=== PATIENT | female | born 1970 | race African-American/Black ===

== ENCOUNTER 2018-10-27 14:56 | Inpatient (IN) | payer MEDICAID ==
[2018-10-27] MEDS ORDERED: NORMAL SALINE 1000 ML 1,000 ML IV ONE ×2 (15:35→18:14)
--- NOTE | 2018-10-27 15:38 | ER Document Report ---
ED General - General Stated Complaint: POSSIBLE HIGH BLOOD SUGAR Time Seen by Provider: 10/27/18 15:21 Mode of Arrival: Stretcher Information source: Patient, Emergency Med Personnel, [facility] Records Notes: 48-year-old female with type 1 diabetes, hypertension, hypothyroidism, alcoholism, liver disease presents via EMS from home with complaint of weakness. EMS reported that the patient's home health nurse called EMS. Upon their arrival patient was hypotensive with a blood pressure of 89/60. Patient does report a recent admission for DKA on September 29, 2018. She states she has been compliant with her medications. She does state that she feels weak and has experienced multiple weeks of nonbloody diarrhea. Patient denies headache, fever, chills, nausea, vomiting, chest pain, shortness of breath. - HPI Onset: Just prior to arrival Quality of pain: No pain Severity: None Pain Level: Denies Associated symptoms: Diarrhea, Weakness. denies: Chest pain, Fever, Nausea, Vomiting, Shortness of breath Exacerbated by: Denies Relieved by: Denies Similar symptoms previously: Yes Recently seen / treated by doctor: Yes - Related Data Allergies/Adverse Reactions: No Known Allergies Allergy (Unverified 10/27/18 18:55) Past Medical History - General Information source: Patient, Emergency Med Personnel, [facility] Records - Social History Smoking Status: Former Smoker Frequency of alcohol use: Occasional Drug Abuse: None Lives with: Family Family History: Reviewed & Not Pertinent Patient has suicidal ideation: No Patient has homicidal ideation: No - Past Medical History Cardiac Medical History: Reports: Hx Hypertension Endocrine Medical History: Reports: Hx Diabetes Mellitus Type 1, Hx Hypothyroidism Review of Systems - Review of Systems Notes: REVIEW OF SYSTEMS: CONSTITUTIONAL : Denies fever, chills, or sweats. Denies recent illness. Denies weight loss, recent hospitalizations. EENT: Denies visual changes, eye pain. Denies sore throat, oral lesions, difficulty swallowing. CARDIOVASCULAR: Denies chest pain. Denies palpitations. Denies lower extremity edema. RESPIRATORY: Denies cough. Denies shortness of breath, wheezing. GASTROINTESTINAL: Denies abdominal pain or distention. Denies nausea, vomiting. Denies blood in vomitus, stools, or per rectum. Denies black, tarry stools. Denies constipation. GENITOURINARY: Denies difficulty urinating, painful urination, frequency, blood in urine, or vaginal discharge. MUSCULOSKELETAL: Denies back or neck pain or stiffness. Denies joint pain or swelling. SKIN: Denies rash, lesions or sores. HEMATOLOGIC : Denies easy bruising or bleeding. LYMPHATIC: Denies swollen glands. NEUROLOGICAL: Denies confusion or altered mental status. Denies loss of consciousness. Denies dizziness or lightheadedness. Denies headache. Denies paralysis. Denies problems difficulty with ambulation, slurred speech. Denies sensory loss, numbness, or tingling. Denies seizures. PSYCHIATRIC: Denies anxiety or stress. Denies depression, suicidal ideation, or homicidal ideation. Denies visual or auditory hallucinations. Physical Exam - Vital signs Vitals: Temp Pulse Resp BP Pulse Ox 94.3 F L 71 18 98/72 L 100 10/27/18 14:57 10/27/18 14:57 10/27/18 14:57 10/27/18 14:57 10/27/18 14:57 - Notes Notes: PHYSICAL EXAMINATION: GENERAL: Well-appearing, well-nourished and in no acute distress. HEAD: Atraumatic, normocephalic. EYES: Pupils equal round and reactive to light, extraocular movements intact, conjunctiva are normal. ENT: Nares patent, oropharynx clear without exudates. Dry mucous membranes. NECK: Normal range of motion, supple without lymphadenopathy LUNGS: Breath sounds clear to auscultation bilaterally and equal. No wheezes ra les or rhonchi. HEART: Regular rate and rhythm without murmurs ABDOMEN: Soft, nontender, nondistended abdomen. No guarding, no rebound. No masses appreciated. Female : deferred Musculoskeletal: Normal range of motion, no pitting or edema. No cyanosis. NEUROLOGICAL: Cranial nerves grossly intact. Normal speech, normal gait. Normal sensory, motor exams PSYCH: Normal mood, normal affect. SKIN: Warm, Dry, normal turgor, no rashes or lesions noted. Course - Re-evaluation Re-evalutation: 10/27/18 22:01 Laboratory 10/27/18 10/27/18 10/27/18 17:17 17:40 17:40 WBC 8.3 RBC 2.42 L Hgb 7.6 L Hct 25.3 L MCV 105 H MCH 31.6 MCHC 30.2 L RDW 18.5 H Plt Count 88 L Total Counted 100 Seg Neutrophils % Not Reportable Seg Neuts % (Manual) 86 H Lymphocytes % Not Reportable Lymphocytes % (Manual) 13 Monocytes % Not Reportable Monocytes % (Manual) 1 L Eosinophils % Not Reportable Eosinophils % (Manual) 0 Basophils % Not Reportable Basophils % (Manual) 0 Absolute Neutrophils Not Reportable Abs Neuts (Manual) 7.1 Absolute Lymphocytes Not Reportable Abs Lymphs (Manual) 1.1 Absolute Monocytes Not Reportable Abs Monocytes (Manual) 0.1 Absolute Eosinophils Not Reportable Absolute Eos (Manual) 0.0 Absolute Basophils Not Reportable Abs Basophils (Manual) 0.0 Large Platelets PRESENT Platelet Comment DECREASED Poikilocytosis SLIGHT Macrocytosis 2+ Target Cells SLIGHT Ovalocytes SLIGHT PT INR VBG pH VBG pCO2 VBG HCO3 VBG Base Excess Sodium 135.6 L Potassium 4.5 Chloride 115 H Carbon Dioxide 7 L* Anion Gap 14 BUN 43 H Creatinine 4.29 H Est GFR ( Amer) 13 L Est GFR (Non-Af Amer) 11 L Glucose 643 H* Lactic Acid Calcium 8.8 Total Bilirubin 0.4 Direct Bilirubin 0.4 Neonat Total Bilirubin Not Reportable Neonat Direct Bilirubin Not Reportable Neonat Indirect Bili Not Reportable AST 11 L ALT 13 Alkaline Phosphatase 141 H Total Protein 6.6 Albumin 2.9 L TSH Urine Color YELLOW Urine Appearance TURBID Urine pH 5.0 Ur Specific [place] 1.009 Urine Protein 100 H Urine Glucose (UA) NEGATIVE Urine Ketones NEGATIVE Urine Blood LARGE H Urine Nitrite NEGATIVE Urine Bilirubin NEGATIVE Urine Urobilinogen NEGATIVE Ur Leukocyte Esterase LARGE H Urine WBC (Auto) >182 Urine RBC (Auto) 131 Urine Bacteria (Auto) 3+ Urine WBC Clumps MANY Squamous Epi Cells Auto 5 Amorphous Sediment Auto TRACE Urine Yeast (Budding) PRESENT Urine Ascorbic Acid NEGATIVE Serum Alcohol < 10 Blood Type Confirm Crossmatch 10/27/18 10/27/18 10/27/18 17:40 17:40 17:40 WBC RBC Hgb Hct MCV MCH MCHC RDW Plt Count Total Counted Seg Neutrophils % Seg Neuts % (Manual) Lymphocytes % Lymphocytes % (Manual) Monocytes % Monocytes % (Manual) Eosinophils % Eosinophils % (Manual) Basophils % Basophils % (Manual) Absolute Neutrophils Abs Neuts (Manual) Absolute Lymphocytes Abs Lymphs (Manual) Absolute Monocytes Abs Monocytes (Manual) Absolute Eosinophils Absolute Eos (Manual) Absolute Basophils Abs Basophils (Manual) Large Platelets Platelet Comment Poikilocytosis Macrocytosis Target Cells Ovalocytes PT INR VBG pH 7.07 L* VBG pCO2 30.6 L VBG HCO3 8.7 L VBG Base Excess -20.2 Sodium Potassium Chloride Carbon Dioxide Anion Gap BUN Creatinine Est GFR ( Amer) Est GFR (Non-Af Amer) Glucose Lactic Acid 1.0 Calcium Total Bilirubin Direct Bilirubin Neonat Total Bilirubin Neonat Direct Bilirubin Neonat Indirect Bili AST ALT Alkaline Phosphatase Total Protein Albumin TSH 3.17 Urine Color Urine Appearance Urine pH Ur Specific [place] Urine Protein Urine Glucose (UA) Urine Ketones Urine Blood Urine Nitrite Urine Bilirubin Urine Urobilinogen Ur Leukocyte Esterase Urine WBC (Auto) Urine RBC (Auto) Urine Bacteria (Auto) Urine WBC Clumps Squamous Epi Cells Auto Amorphous Sediment Auto Urine Yeast (Budding) Urine Ascorbic Acid Serum Alcohol Blood Type Confirm Crossmatch 10/27/18 10/27/18 10/27/18 19:45 19:45 19:50 WBC RBC Hgb Hct MCV MCH MCHC RDW Plt Count Total Counted Seg Neutrophils % Seg Neuts % (Manual) Lymphocytes % Lymphocytes % (Manual) Monocytes % Monocytes % (Manual) Eosinophils % Eosinophils % (Manual) Basophils % Basophils % (Manual) Absolute Neutrophils Abs Neuts (Manual) Absolute Lymphocytes Abs Lymphs (Manual) Absolute Monocytes Abs Monocytes (Manual) Absolute Eosinophils Absolute Eos (Manual) Absolute Basophils Abs Basophils (Manual) Large Platelets Platelet Comment Poikilocytosis Macrocytosis Target Cells Ovalocytes PT 14.7 INR 1.09 VBG pH VBG pCO2 VBG HCO3 VBG Base Excess Sodium Potassium Chloride Carbon Dioxide Anion Gap BUN Creatinine Est GFR ( Amer) Est GFR (Non-Af Amer) Glucose Lactic Acid Calcium Total Bilirubin Direct Bilirubin Neonat Total Bilirubin Neonat Direct Bilirubin Neonat Indirect Bili AST ALT Alkaline Phosphatase Total Protein Albumin TSH Urine Color Urine Appearance Urine pH Ur Specific [place] Urine Protein Urine Glucose (UA) Urine Ketones Urine Blood Urine Nitrite Urine Bilirubin Urine Urobilinogen Ur Leukocyte Esterase Urine WBC (Auto) Urine RBC (Auto) Urine Bacteria (Auto) Urine WBC Clumps Squamous Epi Cells Auto Amorphous Sediment Auto Urine Yeast (Budding) Urine Ascorbic Acid Serum Alcohol Blood Type Confirm B POSITIVE Crossmatch See Detail Chest X-Ray 10/27/18 15:34 IMPRESSION: 1. No acute pulmonary consolidation. 2. Cardiomegaly. No evidence for failure. Temp Pulse Resp BP Pulse Ox 95.5 F L 71 12 96/73 L 100 10/27/18 21:30 10/27/18 14:57 10/27/18 21:30 10/27/18 21:30 10/27/18 21:30 48-year-old female presents via EMS from home with complaint of weakness. Per EMS patient was found hypotensive by her home health nurse. Vital signs revie wed upon arrival and patient is hypothermic, hypotensive. Fluid resuscitation initiated and patient received 3 L of IV fluids. CBC shows an anemia with a hemoglobin of 7.6. Blood transfusion ordered for this. CMP shows hyperglycemia, metabolic acidosis without evidence of DKA. Patient's ABG shows her to have a pH of 7.07. Bear hugger was placed on the patient and warm fluids were infused. Previous medical records were reviewed which showed the patient was admitted recently for similar symptoms. Patient's MRN number today does not match her previous records and charts are not merged. Spoke to Dr. Lucero who is agreed to admit the patient to the [facility]. - Vital Signs Vital signs: Temp Pulse Resp BP Pulse Ox 95.5 F L 71 12 96/73 L 100 10/27/18 21:30 10/27/18 14:57 10/27/18 21:30 10/27/18 21:30 10/27/18 21:30 - Laboratory Result Diagrams: 10/27/18 17:40 10/27/18 17:40 Laboratory results interpreted by me: 10/27/18 10/27/18 10/27/18 17:17 17:40 17:40 RBC 2.42 L Hgb 7.6 L Hct 25.3 L MCV 105 H MCHC 30.2 L RDW 18.5 H Plt Count 88 L Seg Neuts % (Manual) 86 H Monocytes % (Manual) 1 L VBG pH VBG pCO2 VBG HCO3 Sodium 135.6 L Chloride 115 H Carbon Dioxide 7 L* BUN 43 H Creatinine 4.29 H Est GFR ( Amer) 13 L Est GFR (Non-Af Amer) 11 L Glucose 643 H* AST 11 L Alkaline Phosphatase 141 H Albumin 2.9 L Urine Protein 100 H Urine Blood LARGE H Ur Leukocyte Esterase LARGE H Crossmatch 10/27/18 10/27/18 17:40 19:45 RBC Hgb Hct MCV MCHC RDW Plt Count Seg Neuts % (Manual) Monocytes % (Manual) VBG pH 7.07 L* VBG pCO2 30.6 L VBG HCO3 8.7 L Sodium Chloride Carbon Dioxide BUN Creatinine Est GFR ( Amer) Est GFR (Non-Af Amer) Glucose AST Alkaline Phosphatase Albumin Urine Protein Urine Blood Ur Leukocyte Esterase Crossmatch See Detail - Diagnostic Test Radiology reviewed: Image reviewed, Reports reviewed - EKG Interpretation by Me EKG shows normal: Sinus rhythm Rate: Normal Rhythm: NSR When compared to previous EKG there are: No significant change Critical Care Note - Critical Care Note Total time excluding time spent on procedures (mins): 45 - Minutes of critical care time spent in direct contact evaluating and reevaluating the patient, treating symptoms, reviewing labs and studies and speaking with family and consultants excluding any procedures Discharge - Discharge Clinical Impression: Metabolic acidosis, Hypoalbuminemia, Hyperglycemia due to type 1 diabetes mellitus, Acute kidney injury Hypothermia Qualifiers: Encounter type: initial encounter Qualified Code(s): T68.XXXA - Hypothermia, initial encounter Urinary tract infection Qualifiers: Urinary tract infection type: site unspecified Hematuria presence: with he maturia Qualified Code(s): N39.0 - Urinary tract infection, site not specified Hypotension Qualifiers: Hypotension type: unspecified hypotension type Qualified Code(s): I95.9 - Hypotension, unspecified Condition: Fair Disposition: ADMITTED INPATIENT Admitting Provider: [facility] Admitted: [facility]
--- NOTE | 2018-10-27 17:16 | RADIOLOGY REPORT (SQ) ---
EXAM DESCRIPTION: CHEST SINGLE VIEW COMPLETED DATE/TIME: 10/27/2018 5:06 pm REASON FOR STUDY: weakness COMPARISON: None. EXAM PARAMETERS: NUMBER OF VIEWS: One view. TECHNIQUE: Single frontal radiographic view of the chest acquired. RADIATION DOSE: NA LIMITATIONS: None. FINDINGS: LUNGS AND PLEURA: No opacities, masses or pneumothorax. No pleural effusion. MEDIASTINUM AND HILAR STRUCTURES: No masses. Contour normal. HEART AND VASCULAR STRUCTURES: Cardiomegaly. No evidence for failure. BONES: No acute findings. HARDWARE: None in the chest. OTHER: No other significant finding. IMPRESSION: 1. No acute pulmonary consolidation. 2. Cardiomegaly. No evidence for failure. TECHNICAL DOCUMENTATION: JOB ID: [id number] [employer]- All Rights Reserved Reading location - IP/workstation name: [email or web address]
[2018-10-27 18:03] LABS: VENOUS BLOOD BASE EXCESS -20.2 mmol/L; VENOUS BLOOD HCO3 8.7 mmol/L (20-32); VENOUS BLOOD PCO2 30.6 mmHg (35-63)
[2018-10-27 18:09] LABS: VENOUS BLOOD PH 7.07 (7.30-7.42)
[2018-10-27 18:18] LABS: HEMATOCRIT 25.3 % (36.0-47.0); MEAN CORPUSCULAR HEMOGLOBIN 31.6 pg (27.0-33.4); MEAN CORPUSCULAR HGB CONC 30.2 g/dL (32.0-36.0); MEAN CORPUSCULAR VOLUME 105 fl (80-97); RED BLOOD COUNT 2.42 10^6/uL (3.72-5.28); RED CELL DISTRIBUTION WIDTH 18.5 % (11.5-14.0); WHITE BLOOD COUNT 8.3 10^3/uL (4.0-10.5)
[2018-10-27 18:25] LABS: PLATELET COUNT 88 10^3/uL (150-450)
[2018-10-27 18:32] LABS: ABSOLUTE LYMPHOCYTES# (MANUAL) 1.1 10^3/uL (0.5-4.7); ABSOLUTE MONOCYTES # (MANUAL) 0.1 10^3/uL (0.1-1.4); ABSOLUTE NEUTROPHILS# (MANUAL) 7.1 10^3/uL (1.7-8.2); BASOPHILS % (MANUAL) 0 % (0-2); EOSINOPHILS % (MANUAL) 0 % (0-6); LYMPHOCYTES % (MANUAL) 13 % (13-45); MONOCYTES % (MANUAL) 1 % (3-13); SEGMENTED NEUTROPHILS % (MAN) 86 % (42-78); TOTAL CELLS COUNTED 100
[2018-10-27 18:32] LABS: AMORPHOUS SEDIMENT,URINE TRACE /HPF; APPEARANCE,URINE TURBID; BILIRUBIN,URINE NEGATIVE (NEGATIVE); COLOR,URINE YELLOW; GLUCOSE, URINE NEGATIVE (NEGATIVE); KETONES,URINE NEGATIVE (NEGATIVE); LEUKOCYTE ESTERASE,URINE LARGE (NEGATIVE); NITRITE,URINE NEGATIVE (NEGATIVE); PROTEIN,URINE 100 mg/dL (NEGATIVE); URINE SPECIFIC GRAVITY 1.009; UROBILINOGEN,URINE NEGATIVE mg/dL (<2.0)
[2018-10-27 18:33] LABS: PLATELET COMMENT DECREASED; PLATELET LARGE PRESENT
[2018-10-27 18:34] LABS: OVALOCYTES SLIGHT; POIKILOCYTOSIS SLIGHT; TARGET CELLS SLIGHT
[2018-10-27 18:37] LABS: HEMOGLOBIN 7.6 g/dL (12.0-15.5)
[2018-10-27 18:42] LABS: ALANINE AMINOTRANSFERASE 13 U/L (9-52); ALBUMIN 2.9 g/dL (3.5-5.0); ALKALINE PHOSPHATASE 141 U/L (38-126); ANION GAP 14 (5-19); ASPARTATE AMINO TRANSFERASE 11 U/L (14-36); BILIRUBIN,DIRECT 0.4 mg/dL (0.0-0.4); BILIRUBIN,TOTAL 0.4 mg/dL (0.2-1.3); BLOOD UREA NITROGEN 43 mg/dL (7-20); CALCIUM 8.8 mg/dL (8.4-10.2); CHLORIDE 115 mmol/L (98-107); POTASSIUM 4.5 mmol/L (3.6-5.0); SODIUM 135.6 mmol/L (137-145); TOTAL PROTEIN 6.6 g/dL (6.3-8.2)
[2018-10-27 18:50] LABS: ALCOHOL < 10 mg/dL (NONE DETECTED)
[2018-10-27] MEDS ORDERED: CEFTRIAXONE 1 GM/D5W RTU 1 GM/50 ML RTUPB IV ONE ×2 (18:54→23:55)
[2018-10-27] MEDS ORDERED: SODIUM BICARBONATE 8.4% INJ 50 MEQ/50 ML DISP.SYRIN IV ONE (18:56)
[2018-10-27 18:58] LABS: CARBON DIOXIDE 7 mmol/L (22-30); GLUCOSE 643 mg/dL (75-110)
[2018-10-27] MEDS ORDERED: NORMAL SALINE 250 ML IV PRN ×2 (19:12)
[2018-10-27] MEDS ORDERED: THIAMINE HCL 100 MG TABLET PO ONE (19:14)
[2018-10-27] MEDS ORDERED: FOLIC ACID 1 MG TABLET PO ONE (19:14)
--- NOTE | 2018-10-27 19:23 | EKG REPORT ---
SEVERITY:- ABNORMAL ECG - SINUS RHYTHM PROBABLE ANTEROSEPTAL INFARCT, AGE INDETERM : Confirmed by: Sis Bynum 27-Oct-2018 19:23:32
[2018-10-27] MEDS ORDERED: GLUCAGON,HUMAN RECOMB 1 MG INJ IM PRN ×2 (19:46→20:59)
[2018-10-27] MEDS ORDERED: DEXTROSE 50%-WATER 25 GM/50 ML DISP.SYRIN IV PRN ×4 (19:46→20:59)
[2018-10-27] MEDS ORDERED: NORMAL SALINE 100 ML with INSULIN REGULAR, HUMAN 100 UNIT IV PRN ×4 (19:46→20:59)
[2018-10-27] MEDS ORDERED: DEXTROSE 40% GEL 15 GM TUBE PO PRN ×4 (19:46→20:59)
[2018-10-27 20:13] LABS: INTERNATIONAL RATION (INR) 1.09; PROTHROMBIN TIME 14.7 SEC (11.4-15.4)
[2018-10-27] MEDS ORDERED: NORMAL SALINE 1000 ML 1,000 ML IV PRN (20:54)
--- NOTE | 2018-10-27 21:15 | PDOC H&P ---
History of Present Illness Admission Date/PCP: 10/27/18 19:58 DENISE MURRELL MD History of Present Illness: PANFILO BARBER is a 48 year old female, Patient was brought to the emergency room for evaluation of hypotension, elevated blood glucose, there was severe normal anion gap metabolic acidosis,Acute kidney injury, hyperglycemia,There was severe anemia with hemoglobin of 7,Resuscitation was initiated in the emergency room with blood transfusion, she was also severely hypothermic.Patient condition is critical, BUN is 43 creatinine is 4.29.History difficult to obtain in this patient because she is very lethargic.She was transferred from home to the emergency room for evaluation for possible high blood sugar, she also stated that she had multiple weeks of nonbloody diarrhea there is no fever chills nausea vomiting no shortness of breath.When EMS arrived at patient's residence, she was found to be hypotensive she was also extremely hypothermic she required bear hugger and also warm IV fluids were infused Past Medical History Cardiac Medical History: Reports: Hypertension Endocrine Medical History: Reports: Diabetes Mellitus Type 1, Hypothyroidism GI Medical History: Reports: Cirrhosis Social History Lives with: Family Smoking Status: Former Smoker Family History Family History: Reviewed & Not Pertinent Parental Family History Reviewed: Yes Children Family History Reviewed: Yes Sibling(s) Family History Reviewed.: Yes Medication/Allergy Home Medications: Ferrous Sulfate [Feosol] 325 mg PO DAILY 10/27/18 Folic Acid [Folvite 1 mg Tablet] 1 mg PO DAILY 10/27/18 Furosemide [Lasix 40 mg Tablet] 40 mg PO DAILY 10/27/18 Insulin Lispro [Humalog Kwikpen] 5 unit SQ TID 10/27/18 Levothyroxine Sodium [Synthroid 0.088 mg Tablet] 0.088 mg PO Q6AM 10/27/18 Meloxicam [Mobic] 7.5 mg PO BIDP PRN 10/27/18 Montelukast Sodium [Singulair 10 mg Tablet] 10 mg PO QHS 10/27/18 Omeprazole 20 mg PO BID 10/27/18 Oxycodone HCl [Oxy-Ir 5 mg Tablet] 5 mg PO Q8HP PRN 10/27/18 Sitagliptin Phosphate [Januvia 25 mg Tablet] 25 mg PO DAILY 10/27/18 Spironolactone [Aldactone 25 mg Tablet] 25 mg PO DAILY 10/27/18 Allergies/Adverse Reactions: No Known Allergies Allergy (Unverified 10/27/18 18:55) Review of Systems ROS unobtainable: Due to mental status - lethargic Physical Exam Vital Signs: Temp Pulse Resp BP Pulse Ox 94.4 F L 71 18 114/86 H 100 10/27/18 19:45 10/27/18 14:57 10/27/18 19:45 10/27/18 19:45 10/27/18 19:45 Intake & Output 10/26/18 10/27/18 10/28/18 06:59 06:59 06:59 Intake Total 2049 Balance 2049 Weight 88.8 kg General appearance: PRESENT: other - lethargic but easily arousable Eye exam: PRESENT: PERRLA Respiratory exam: PRESENT: clear to auscultation [place] Cardiovascular exam: PRESENT: irregular rhythm, +S1, +S2 GI/Abdominal exam: PRESENT: soft Extremities exam: PRESENT: pedal edema Neurological exam: PRESENT: other - lethargic but arousable Results Laboratory Results: 10/27/18 17:40 10/27/18 17:40 10/27/18 10/27/18 10/27/18 17:17 17:40 17:40 WBC 8.3 RBC 2.42 L Hgb 7.6 L Hct 25.3 L MCV 105 H MCH 31.6 MCHC 30.2 L RDW 18.5 H Plt Count 88 L Seg Neutrophils % Not Reportable Lymphocytes % Not Reportable Monocytes % Not Reportable Eosinophils % Not Reportable Basophils % Not Reportable Absolute Neutrophils Not Reportable Absolute Lymphocytes Not Reportable Absolute Monocytes Not Reportable Absolute Eosinophils Not Reportable Absolute Basophils Not Reportable VBG pH VBG pCO2 VBG HCO3 VBG Base Excess Sodium 135.6 L Potassium 4.5 Chloride 115 H Carbon Dioxide 7 L* Anion Gap 14 BUN 43 H Creatinine 4.29 H Est GFR ( Amer) 13 L Est GFR (Non-Af Amer) 11 L Glucose 643 H* Lactic Acid Calcium 8.8 Total Bilirubin 0.4 AST 11 L ALT 13 Alkaline Phosphatase 141 H Total Protein 6.6 Albumin 2.9 L TSH Urine Color YELLOW Urine Appearance TURBID Urine pH 5.0 Ur Specific [place] 1.009 Urine Protein 100 H Urine Glucose (UA) NEGATIVE Urine Ketones NEGATIVE Urine Blood LARGE H Urine Nitrite NEGATIVE Ur Leukocyte Esterase LARGE H Urine WBC (Auto) >182 Urine RBC (Auto) 131 10/27/18 10/27/18 10/27/18 17:40 17:40 17:40 WBC RBC Hgb Hct MCV MCH MCHC RDW Plt Count Seg Neutrophils % Lymphocytes % Monocytes % Eosinophils % Basophils % Absolute Neutrophils Absolute Lymphocytes Absolute Monocytes Absolute Eosinophils Absolute Basophils VBG pH 7.07 L* VBG pCO2 30.6 L VBG HCO3 8.7 L VBG Base Excess -20.2 Sodium Potassium Chloride Carbon Dioxide Anion Gap BUN Creatinine Est GFR ( Amer) Est GFR (Non-Af Amer) Glucose Lactic Acid 1.0 Calcium Total Bilirubin AST ALT Alkaline Phosphatase Total Protein Albumin TSH 3.17 Urine Color Urine Appearance Urine pH Ur Specific [place] Urine Protein Urine Glucose (UA) Urine Ketones Urine Blood Urine Nitrite Ur Leukocyte Esterase Urine WBC (Auto) Urine RBC (Auto) Impressions: Chest X-Ray 10/27/18 15:34 IMPRESSION: 1. No acute pulmonary consolidation. 2. Cardiomegaly. No evidence for failure. Assessment & Plan - Diagnosis (1) Normal anion gap metabolic acidosis Is this a current diagnosis for this admission?: Yes Plan: There is severe metabolic acidosis normal anion gap, treated with bicarb infusion (2) Hypotension Qualifiers: Hypotension type: other hypotension type Qualified Code(s): I95.89 - Other hypotension Is this a current diagnosis for this admission?: Yes Plan: Vigorous fluid hydration (3) Acute kidney injury Is this a current diagnosis for this admission?: Yes (4) Hyperkalemia Is this a current diagnosis for this admission?: Yes Plan: Patient with calcium gluconate, 50% dextrose, regular insulin (5) Septic shock Is this a current diagnosis for this admission?: Yes (6) Anemia Qualifiers: Anemia type: unspecified type Qualified Code(s): D64.9 - Anemia, unspecified Is this a current diagnosis for this admission?: Yes Plan: Transfuse packed red blood cells
[2018-10-27] MEDS ORDERED: CEFTRIAXONE 1 GM/D5W RTU 1 GM/50 ML RTUPB IV SCH (22:00)
[2018-10-27 22:03] LABS: INTERNATIONAL RATION (INR) 1.23; PROTHROMBIN TIME 16.1 SEC (11.4-15.4)
[2018-10-27 22:15] LABS: PHOSPHORUS 5.2 mg/dL (2.5-4.5)
[2018-10-27 22:18] LABS: BLOOD UREA NITROGEN 43 mg/dL (7-20); CALCIUM 8.3 mg/dL (8.4-10.2); CHLORIDE 117 mmol/L (98-107); CREATINE KINASE 77 U/L (30-135); POTASSIUM 4.1 mmol/L (3.6-5.0); SODIUM 136.1 mmol/L (137-145)
[2018-10-27 22:23] LABS: ANION GAP 11 (5-19)
[2018-10-27 22:26] LABS: LIPASE 3416.3 U/L (23-300)
[2018-10-27 22:29] LABS: CREATINE KINASE MB 3.26 ng/mL (<4.55)
[2018-10-27 22:32] LABS: FREE T4 (FREE THYROXINE) 1.25 ng/dL (0.78-2.19)
[2018-10-27 22:44] LABS: TROPONIN I < 0.012 ng/mL
[2018-10-27 22:46] LABS: THYROID STIMULATING HORMONE 3.03 uIU/mL (0.47-4.68)
[2018-10-27 22:47] LABS: CARBON DIOXIDE 8 mmol/L (22-30)
[2018-10-27 22:48] LABS: GLUCOSE 565 mg/dL (75-110)
[2018-10-27] MEDS: HEPARIN SOD (PORCINE) 5,000 UNIT/ML 1 ML SYRINGE SUBCUT SCH (23:37)
[2018-10-28 01:20] LABS: URINE AMPHETAMINES SCREEN NEGATIVE; URINE BARBITURATES SCREEN NEGATIVE; URINE BENZODIAZEPINES SCREEN NEGATIVE; URINE COCAINE SCREEN NEGATIVE; URINE MARIJUANA (THC) SCREEN NEGATIVE; URINE METHADONE SCREEN NEGATIVE; URINE PHENCYCLIDINE SCREEN NEGATIVE
[2018-10-28 02:06] LABS: ARTERIAL BLOOD BASE EXCESS -19.3 mmol/L; ARTERIAL BLOOD O2 SATURATION 97.7 % (94-98); ARTERIAL BLOOD PCO2 29.8 mmHg (35-45); ARTERIAL BLOOD PO2 134.5 mmHg (80-100); ARTERIAL BLOOD TOTAL CO2 9.9 mmol/L (21-25)
[2018-10-28 02:07] LABS: ARTERIAL BLOOD FIO2 ROOM AIR
[2018-10-28 05:17] LABS: CREATINE KINASE MB 3.38 ng/mL (<4.55)
[2018-10-28] MEDS: HEPARIN SOD (PORCINE) 5,000 UNIT/ML 1 ML SYRINGE SUBCUT SCH ×3 (05:41→22:40)
[2018-10-28 06:33] LABS: TROPONIN I < 0.012 ng/mL
[2018-10-28] MEDS ORDERED: DOPAMINE HCL/DEXTROSE 5%-WATER 800 MG/250 ML RTUINJ IV PRN (06:38)
[2018-10-28] MEDS ORDERED: FUROSEMIDE INJ/PF 40 MG/4 ML SDV IV ONE ×3 (06:38→23:00)
[2018-10-28] MEDS ORDERED: DEXTROSE 50%-WATER SYRINGE 25 GM/50 ML DOSE IV PRN (09:00)
[2018-10-28] MEDS ORDERED: DEXTROSE 50%-WATER SYRINGE 12.5 GM/25 ML DOSE IV PRN (09:00)
[2018-10-28] MEDS ORDERED: DEXTROSE 40% GEL 15 GM TUBE PO PRN (09:00)
[2018-10-28] MEDS ORDERED: DEXTROSE 5%-WATER 1000 ML 1,000 ML with SODIUM BICARBONATE 150 MEQ IV PRN ×2 (09:00)
[2018-10-28] MEDS ORDERED: GLUCAGON,HUMAN RECOMB 1 MG INJ IM PRN (09:00)
[2018-10-28] MEDS ORDERED: DEXTROSE 40% GEL 15 GM TUBE X 2 PO PRN (09:00)
[2018-10-28 10:00] LABS: HEMATOCRIT 30.3 % (36.0-47.0); MEAN CORPUSCULAR HEMOGLOBIN 31.2 pg (27.0-33.4); PLATELET COUNT 101 10^3/uL (150-450); RED CELL DISTRIBUTION WIDTH 19.2 % (11.5-14.0); WHITE BLOOD COUNT 9.6 10^3/uL (4.0-10.5)
[2018-10-28] MEDS ORDERED: ERTAPENEM SODIUM 1 GM in NORMAL SALINE 50 ML IV SCH (10:00)
[2018-10-28] MEDS ORDERED: THIAMINE HCL 100 MG in NORMAL SALINE 50 ML IV SCH (10:00)
[2018-10-28 10:25] LABS: CREATINE KINASE MB 3.32 ng/mL (<4.55)
[2018-10-28 10:26] LABS: TROPONIN I < 0.012 ng/mL
[2018-10-28] MEDS ORDERED: DEXTROSE 5%-WATER 250 ML with NOREPINEPHRINE BITARTRATE 4 MG IV PRN ×2 (10:30)
[2018-10-28 10:31] LABS: ALANINE AMINOTRANSFERASE 12 U/L (9-52); ALKALINE PHOSPHATASE 121 U/L (38-126); ASPARTATE AMINO TRANSFERASE 16 U/L (14-36); BILIRUBIN,DIRECT 0.5 mg/dL (0.0-0.4); BILIRUBIN,TOTAL 0.5 mg/dL (0.2-1.3); TOTAL PROTEIN 7.2 g/dL (6.3-8.2); TRIGLYCERIDES 57 mg/dL (<150)
[2018-10-28 10:32] LABS: HEMOGLOBIN 9.7 g/dL (12.0-15.5); MEAN CORPUSCULAR VOLUME 98 fl (80-97)
[2018-10-28 10:37] LABS: ABSOLUTE LYMPHOCYTES# (MANUAL) 1.6 10^3/uL (0.5-4.7); BASOPHILS % (MANUAL) 0 % (0-2); BLOOD UREA NITROGEN 41 mg/dL (7-20); CALCIUM 8.8 mg/dL (8.4-10.2); CHLORIDE 124 mmol/L (98-107); CREATINE KINASE 75 U/L (30-135); EOSINOPHILS % (MANUAL) 0 % (0-6); LYMPHOCYTES % (MANUAL) 17 % (13-45); MONOCYTES % (MANUAL) 0 % (3-13); POTASSIUM 3.8 mmol/L (3.6-5.0); SEGMENTED NEUTROPHILS % (MAN) 83 % (42-78); SODIUM 143.7 mmol/L (137-145); TOTAL CELLS COUNTED 100
[2018-10-28 10:41] LABS: ANISOCYTOSIS 2+; POIKILOCYTOSIS SLIGHT; POLYCHROMASIA SLIGHT; SCHISTOCYTES SLIGHT; TEAR DROP CELLS SLIGHT
[2018-10-28 10:42] LABS: ANION GAP 13 (5-19); NUCLEATED RED BLOOD CELLS 7 /100 WBC (0)
[2018-10-28 10:43] LABS: PLATELET COMMENT DECREASED
[2018-10-28] MEDS ORDERED: DOPAMINE HCL 800 MG/D5W 250 ML IV PRN (10:46)
[2018-10-28 10:49] LABS: DIRECT LDL < 30 mg/dL (<100)
[2018-10-28] MEDS: THIAMINE HCL IV SCH (10:49)
[2018-10-28] MEDS: INSULIN LISPRO 100 UNIT/ML 3 ML VIAL SUBCUT SCH ×3 (10:49→22:49)
[2018-10-28] MEDS: WATER IV SCH (10:49)
[2018-10-28] MEDS: DEXTROSE 5% IV SCH (10:49)
[2018-10-28 10:54] LABS: CARBON DIOXIDE 7 mmol/L (22-30); GLUCOSE 64 mg/dL (75-110)
[2018-10-28] MEDS: ERTAPENEM SODIUM 0.5 GM in NORMAL SALINE 50 ML IV SCH (14:10)
[2018-10-28 15:51] LABS: ANION GAP 11 (5-19); BLOOD UREA NITROGEN 41 mg/dL (7-20); CALCIUM 8.1 mg/dL (8.4-10.2); CARBON DIOXIDE 12 mmol/L (22-30); CHLORIDE 117 mmol/L (98-107); GLUCOSE 155 mg/dL (75-110); POTASSIUM 3.9 mmol/L (3.6-5.0); SODIUM 140.1 mmol/L (137-145)
[2018-10-28] MEDS: DEXTROSE 5%-WATER 1000 ML 1,000 ML with SODIUM BICARBONATE 150 MEQ IV PRN ×4 (16:55→23:37)
--- NOTE | 2018-10-28 19:58 | PDOC PROGRESS REPORT ---
Subjective Progress Note for:: 10/28/18 Subjective:: Patient seen by the bedside, she is responding to treatment blood pressure has normalized Reason For Visit: ACUTE METABOLIC ACIDOSIS, HYPOTHERMIA TYPE I Physical Exam Vital Signs: Temp Pulse Resp BP Pulse Ox 96.1 F L 149 H 20 141/89 H 100 10/28/18 15:32 10/28/18 15:32 10/28/18 15:32 10/28/18 15:32 10/28/18 15:32 Intake & Output 10/27/18 10/28/18 10/29/18 06:59 06:59 06:59 Intake Total 2407 2119 Output Total 350 Balance 2407 1769 Weight 60.1 kg General appearance: PRESENT: no acute distress Eye exam: PRESENT: PERRLA Respiratory exam: PRESENT: clear to auscultation [place] Cardiovascular exam: PRESENT: +S1, +S2 GI/Abdominal exam: PRESENT: soft Neurological exam: PRESENT: alert Results Laboratory Results: 10/28/18 09:19 10/28/18 14:59 10/27/18 10/27/18 10/27/18 19:45 21:20 21:20 WBC RBC Hgb Hct MCV MCH MCHC RDW Plt Count Seg Neutrophils % Lymphocytes % Monocytes % Eosinophils % Basophils % Absolute Neutrophils Absolute Lymphocytes Absolute Monocytes Absolute Eosinophils Absolute Basophils Carbonic Acid HCO3/H2CO3 Ratio ABG pH ABG pCO2 ABG pO2 ABG HCO3 ABG O2 Saturation ABG Base Excess FiO2 Sodium Potassium Chloride Carbon Dioxide Anion Gap BUN Creatinine Est GFR ( Amer) Est GFR (Non-Af Amer) Glucose Calcium Phosphorus 5.2 H Magnesium 1.8 Total Bilirubin AST ALT Alkaline Phosphatase Ammonia 18.8 Total Protein Albumin Triglycerides Cholesterol LDL Cholesterol Direct VLDL Cholesterol HDL Cholesterol Amylase 574 H Lipase 3416.3 H TSH Free T4 Blood Type B POSITIVE Antibody Screen POSITIVE 10/27/18 10/27/18 10/28/18 21:20 21:20 01:00 WBC RBC Hgb Hct MCV MCH MCHC RDW Plt Count Seg Neutrophils % Lymphocytes % Monocytes % Eosinophils % Basophils % Absolute Neutrophils Absolute Lymphocytes Absolute Monocytes Absolute Eosinophils Absolute Basophils Carbonic Acid 0.90 L HCO3/H2CO3 Ratio 10:1 ABG pH 7.10 L* ABG pCO2 29.8 L ABG pO2 134.5 H ABG HCO3 9.0 L ABG O2 Saturation 97.7 ABG Base Excess -19.3 FiO2 ROOM AIR Sodium 136.1 L Potassium 4.1 Chloride 117 H Carbon Dioxide 8 L* Anion Gap 11 BUN 43 H Creatinine 3.90 H Est GFR ( Amer) 15 L Est GFR (Non-Af Amer) 12 L Glucose 565 H* Calcium 8.3 L Phosphorus Magnesium Total Bilirubin AST ALT Alkaline Phosphatase Ammonia Total Protein Albumin Triglycerides Cholesterol LDL Cholesterol Direct VLDL Cholesterol HDL Cholesterol Amylase Lipase TSH 3.03 Free T4 1.25 Blood Type Antibody Screen 10/28/18 10/28/18 10/28/18 03:48 09:19 09:19 WBC 9.6 RBC 3.10 L Hgb 9.7 L D Hct 30.3 L MCV 98 H D MCH 31.2 MCHC 32.0 RDW 19.2 H Plt Count 101 L Seg Neutrophils % Not Reportable Lymphocytes % Not Reportable Monocytes % Not Reportable Eosinophils % Not Reportable Basophils % Not Reportable Absolute Neutrophils Not Reportable Absolute Lymphocytes Not Reportable Absolute Monocytes Not Reportable Absolute Eosinophils Not Reportable Absolute Basophils Not Reportable Carbonic Acid HCO3/H2CO3 Ratio ABG pH ABG pCO2 ABG pO2 ABG HCO3 ABG O2 Saturation ABG Base Excess FiO2 Sodium Cancelled 143.7 Potassium Cancelled 3.8 Chloride Cancelled 124 H Carbon Dioxide Cancelled 7 L* Anion Gap Cancelled 13 BUN Cancelled 41 H Creatinine Cancelled 4.24 H Est GFR ( Amer) Cancelled 13 L Est GFR (Non-Af Amer) Cancelled 11 L Glucose Cancelled 64 L Calcium Cancelled 8.8 Phosphorus Magnesium Total Bilirubin Cancelled AST Cancelled ALT Cancelled Alkaline Phosphatase Cancelled Ammonia Total Protein Cancelled Albumin Cancelled Triglycerides Cancelled Cholesterol Cancelled LDL Cholesterol Direct Cancelled VLDL Cholesterol Cancelled HDL Cholesterol Cancelled Amylase Lipase TSH Free T4 Blood Type Antibody Screen 10/28/18 10/28/18 09:42 14:59 WBC RBC Hgb Hct MCV MCH MCHC RDW Plt Count Seg Neutrophils % Lymphocytes % Monocytes % Eosinophils % Basophils % Absolute Neutrophils Absolute Lymphocytes Absolute Monocytes Absolute Eosinophils Absolute Basophils Carbonic Acid HCO3/H2CO3 Ratio ABG pH ABG pCO2 ABG pO2 ABG HCO3 ABG O2 Saturation ABG Base Excess FiO2 Sodium 140.1 Potassium 3.9 Chloride 117 H Carbon Dioxide 12 L Anion Gap 11 BUN 41 H Creatinine 3.87 H Est GFR ( Amer) 15 L Est GFR (Non-Af Amer) 12 L Glucose 155 H Calcium 8.1 L Phosphorus Magnesium Total Bilirubin 0.5 AST 16 ALT 12 Alkaline Phosphatase 121 Ammonia Total Protein 7.2 Albumin 3.0 L Triglycerides 57 Cholesterol 71.60 LDL Cholesterol Direct < 30 VLDL Cholesterol 11.0 HDL Cholesterol 50 Amylase Lipase TSH Free T4 Blood Type Antibody Screen 10/27/18 10/27/18 10/27/18 21:20 21:20 21:20 Creatine Kinase 77 CK-MB (CK-2) 3.26 Troponin I < 0.012 NT-Pro-B Natriuret Pep 09058 H 10/28/18 10/28/18 10/28/18 03:48 03:48 09:19 Creatine Kinase 77 75 CK-MB (CK-2) 3.38 Troponin I < 0.012 NT-Pro-B Natriuret Pep 10/28/18 09:19 Creatine Kinase CK-MB (CK-2) 3.32 Troponin I < 0.012 NT-Pro-B Natriuret Pep Impressions: Chest X-Ray 10/27/18 15:34 IMPRESSION: 1. No acute pulmonary consolidation. 2. Cardiomegaly. No evidence for failure. Assessment & Plan - Diagnosis (1) Normal anion gap metabolic acidosis Is this a current diagnosis for this admission?: Yes (2) Hypotension Qualifiers: Hypotension type: other hypotension type Qualified Code(s): I95.89 - Other hypotension Is this a current diagnosis for this admission?: Yes Plan: The low blood pressure has improved with hydration (3) Acute kidney injury Is this a current diagnosis for this admission?: Yes (4) Hyperkalemia Is this a current diagnosis for this admission?: Yes (5) Septic shock Is this a current diagnosis for this admission?: Yes (6) Anemia Qualifiers: Anemia type: unspecified type Qualified Code(s): D64.9 - Anemia, unspecified Is this a current diagnosis for this admission?: Yes
[2018-10-28] MEDS ORDERED: CEFTRIAXONE SODIUM 1,000 MG in DEXTROSE 5%-WATER 50 ML IV SCH (22:00)
[2018-10-29] MEDS: HEPARIN SOD (PORCINE) 5,000 UNIT/ML 1 ML SYRINGE SUBCUT SCH ×3 (06:46→23:02)
[2018-10-29 07:52] LABS: ALANINE AMINOTRANSFERASE 15 U/L (9-52); ALBUMIN 2.4 g/dL (3.5-5.0); ALKALINE PHOSPHATASE 136 U/L (38-126); ANION GAP 11 (5-19); ASPARTATE AMINO TRANSFERASE 12 U/L (14-36); BILIRUBIN,DIRECT 0.3 mg/dL (0.0-0.4); BILIRUBIN,TOTAL 0.4 mg/dL (0.2-1.3); BLOOD UREA NITROGEN 40 mg/dL (7-20); CARBON DIOXIDE 18 mmol/L (22-30); CHLORIDE 111 mmol/L (98-107); GLUCOSE 284 mg/dL (75-110); SODIUM 140.4 mmol/L (137-145); TOTAL PROTEIN 5.8 g/dL (6.3-8.2)
[2018-10-29 07:55] LABS: ABSOLUTE LYMPHOCYTES (AUTO) 1.1 10^3/uL (0.5-4.7); ABSOLUTE MONOCYTES (AUTO) 0.3 10^3/uL (0.1-1.4); ABSOLUTE NEUT (AUTO) 5.7 10^3/uL (1.7-8.2); BASOPHILS % (AUTO) 0.6 % (0-2); EOSINOPHILS % (AUTO) 0.7 % (0-6); HEMATOCRIT 26.4 % (36.0-47.0); HEMOGLOBIN 8.8 g/dL (12.0-15.5); LYMPHOCYTES % (AUTO) 15.1 % (13-45); MEAN CORPUSCULAR HEMOGLOBIN 31.4 pg (27.0-33.4); MEAN CORPUSCULAR HGB CONC 33.6 g/dL (32.0-36.0); MONOCYTES % (AUTO) 4.4 % (3-13); RED BLOOD COUNT 2.81 10^6/uL (3.72-5.28); RED CELL DISTRIBUTION WIDTH 19.6 % (11.5-14.0); SEGMENTED NEUTROPHILS % (AUTO) 79.2 % (42-78); TOTAL CELLS COUNTED % (AUTO) 100 %; WHITE BLOOD COUNT 7.2 10^3/uL (4.0-10.5)
[2018-10-29 07:56] LABS: POTASSIUM 2.9 mmol/L (3.6-5.0)
[2018-10-29] MEDS: INSULIN LISPRO 100 UNIT/ML 3 ML VIAL SUBCUT SCH ×4 (08:00→23:07)
[2018-10-29] MEDS: DEXTROSE 5%-WATER 1000 ML 1,000 ML with SODIUM BICARBONATE 150 MEQ IV PRN ×4 (08:01→14:34)
[2018-10-29] MEDS ORDERED: POTASSIUM CHLORIDE 10 MEQ CAPSULE.ER PO ONE (08:09)
[2018-10-29 09:09] LABS: MEAN CORPUSCULAR VOLUME 94 fl (80-97)
[2018-10-29 09:20] LABS: PLATELET COUNT 99 10^3/uL (150-450)
[2018-10-29] MEDS ORDERED: MAGNESIUM SULFATE/D5W 1 GM/100 ML RTUPB IV ONE (10:00)
[2018-10-29] MEDS ORDERED: MAGNESIUM SULFATE 1 GM in D5W 100 ML IV ONE (10:15)
[2018-10-29] MEDS: ERTAPENEM SODIUM 0.5 GM in NORMAL SALINE 50 ML IV SCH (10:25)
[2018-10-29] MEDS: DEXTROSE 5% IV SCH (10:49)
[2018-10-29] MEDS: THIAMINE HCL IV SCH (10:49)
[2018-10-29] MEDS: WATER IV SCH (10:49)
[2018-10-29 12:27] LABS: PATH REVIEW PATHOLOGIST REVIEWED
[2018-10-29] MEDS ORDERED: FUROSEMIDE INJ/PF 40 MG/4 ML SDV IV ONE (20:43)
--- NOTE | 2018-10-29 20:52 | PDOC PROGRESS REPORT ---
Subjective Progress Note for:: 10/29/18 Subjective:: Patient seen by the bedside she is alert Reason For Visit: ACUTE METABOLIC ACIDOSIS, HYPOTHERMIA TYPE I Physical Exam Vital Signs: Temp Pulse Resp BP Pulse Ox 97.3 F 80 16 112/79 100 10/29/18 15:12 10/29/18 15:12 10/29/18 15:12 10/29/18 15:12 10/29/18 15:12 Intake & Output 10/28/18 10/29/18 10/30/18 06:59 06:59 06:59 Intake Total 2407 4119 1776 Output Total 1050 1700 Balance 2407 3069 76 Weight 60.1 kg 59.2 kg General appearance: PRESENT: no acute distress Eye exam: PRESENT: PERRLA Respiratory exam: PRESENT: clear to auscultation [place] Cardiovascular exam: PRESENT: +S1, +S2 GI/Abdominal exam: PRESENT: soft Extremities exam: PRESENT: pedal edema Neurological exam: PRESENT: alert Results Laboratory Results: 10/29/18 06:30 10/29/18 06:30 10/29/18 10/29/18 10/29/18 06:30 06:30 06:30 WBC 7.2 RBC 2.81 L Hgb 8.8 L Hct 26.4 L MCV 94 D MCH 31.4 MCHC 33.6 RDW 19.6 H Plt Count 99 L Seg Neutrophils % 79.2 H Lymphocytes % 15.1 Monocytes % 4.4 Eosinophils % 0.7 Basophils % 0.6 Absolute Neutrophils 5.7 Absolute Lymphocytes 1.1 Absolute Monocytes 0.3 Absolute Eosinophils 0.0 Absolute Basophils 0.0 Sodium 140.4 Potassium 2.9 L* D Chloride 111 H Carbon Dioxide 18 L Anion Gap 11 BUN 40 H Creatinine 4.13 H Est GFR ( Amer) 14 L Est GFR (Non-Af Amer) 11 L Glucose 284 H Calcium 8.0 L Magnesium 1.5 L Total Bilirubin 0.4 AST 12 L ALT 15 Alkaline Phosphatase 136 H Total Protein 5.8 L Albumin 2.4 L 10/27/18 17:17 Catheterized Urine Urine Culture - Final Escherichia Coli 10/27/18 10/27/18 10/27/18 21:20 21:20 21:20 Creatine Kinase 77 CK-MB (CK-2) 3.26 Troponin I < 0.012 NT-Pro-B Natriuret Pep [id number] H 04/30/19 04/30/19 04/30/19 03:48 03:48 09:19 Creatine Kinase 77 75 CK-MB (CK-2) 3.38 Troponin I < 0.012 NT-Pro-B Natriuret Pep 10/28/18 09:19 Creatine Kinase CK-MB (CK-2) 3.32 Troponin I < 0.012 NT-Pro-B Natriuret Pep Impressions: Chest X-Ray 10/27/18 15:34 IMPRESSION: 1. No acute pulmonary consolidation. 2. Cardiomegaly. No evidence for failure. Assessment & Plan - Diagnosis (1) Normal anion gap metabolic acidosis Is this a current diagnosis for this admission?: Yes Plan: There is severe metabolic acidosis normal anion gap, treated with bicarb infusion (2) Hypotension Qualifiers: Hypotension type: other hypotension type Qualified Code(s): I95.89 - Other hypotension Is this a current diagnosis for this admission?: Yes Plan: resolved (3) Acute kidney injury Is this a current diagnosis for this admission?: Yes (4) Hyperkalemia Is this a current diagnosis for this admission?: Yes (5) Septic shock Is this a current diagnosis for this admission?: Yes (6) Anemia Qualifiers: Anemia type: unspecified type Qualified Code(s): D64.9 - Anemia, unspecified Is this a current diagnosis for this admission?: Yes Plan: Transfuse packed red blood cells
[2018-10-29 21:32] LABS: ANION GAP 8 (5-19); BLOOD UREA NITROGEN 42 mg/dL (7-20); CARBON DIOXIDE 21 mmol/L (22-30); CHLORIDE 107 mmol/L (98-107); GLUCOSE 197 mg/dL (75-110); POTASSIUM 3.3 mmol/L (3.6-5.0); SODIUM 136.3 mmol/L (137-145)
[2018-10-29] MEDS: FOLIC ACID 1 MG TABLET PO SCH (23:07)
[2018-10-29] MEDS: FERROUS SULFATE 325 MG TABLET PO SCH (23:07)
--- NOTE | 2018-10-29 23:07 | EKG REPORT ---
SEVERITY:- ABNORMAL ECG - SINUS RHYTHM LOW VOLTAGE IN FRONTAL LEADS CONSIDER ANTEROSEPTAL INFARCT : Confirmed by: Sis Bynum 29-Oct-2018 23:05:53
[2018-10-29] MEDS: SITAGLIPTIN PHOSPHATE 25 MG TABLET PO SCH (23:26)
[2018-10-30] MEDS: DEXTROSE 5%-WATER 1000 ML 1,000 ML with SODIUM BICARBONATE 150 MEQ IV PRN ×6 (00:32→20:57)
[2018-10-30 05:24] LABS: ALANINE AMINOTRANSFERASE 16 U/L (9-52); ALBUMIN 2.3 g/dL (3.5-5.0); ALKALINE PHOSPHATASE 116 U/L (38-126); ANION GAP 10 (5-19); ASPARTATE AMINO TRANSFERASE 17 U/L (14-36); BILIRUBIN,DIRECT 0.3 mg/dL (0.0-0.4); BILIRUBIN,TOTAL 0.4 mg/dL (0.2-1.3); BLOOD UREA NITROGEN 42 mg/dL (7-20); CALCIUM 7.9 mg/dL (8.4-10.2); CARBON DIOXIDE 24 mmol/L (22-30); CHLORIDE 106 mmol/L (98-107); GLUCOSE 292 mg/dL (75-110); POTASSIUM 3.1 mmol/L (3.6-5.0); SODIUM 139.6 mmol/L (137-145); TOTAL PROTEIN 5.6 g/dL (6.3-8.2)
[2018-10-30 05:39] LABS: ABSOLUTE BASOPHILS # (AUTO) 0.1 10^3/uL (0.0-0.2); ABSOLUTE EOSINOPHILS # (AUTO) 0.1 10^3/uL (0.0-0.6); ABSOLUTE LYMPHOCYTES (AUTO) 1.2 10^3/uL (0.5-4.7); ABSOLUTE MONOCYTES (AUTO) 0.4 10^3/uL (0.1-1.4); ABSOLUTE NEUT (AUTO) 4.7 10^3/uL (1.7-8.2); BASOPHILS % (AUTO) 1.4 % (0-2); EOSINOPHILS % (AUTO) 0.9 % (0-6); HEMATOCRIT 26.6 % (36.0-47.0); HEMOGLOBIN 8.8 g/dL (12.0-15.5); LYMPHOCYTES % (AUTO) 18.7 % (13-45); MEAN CORPUSCULAR HEMOGLOBIN 30.5 pg (27.0-33.4); MEAN CORPUSCULAR HGB CONC 33.3 g/dL (32.0-36.0); MEAN CORPUSCULAR VOLUME 92 fl (80-97); MONOCYTES % (AUTO) 5.5 % (3-13); RED CELL DISTRIBUTION WIDTH 20.1 % (11.5-14.0); SEGMENTED NEUTROPHILS % (AUTO) 73.5 % (42-78); TOTAL CELLS COUNTED % (AUTO) 100 %; WHITE BLOOD COUNT 6.4 10^3/uL (4.0-10.5)
[2018-10-30 05:40] LABS: PLATELET COUNT 94 10^3/uL (150-450)
[2018-10-30] MEDS: LEVOTHYROXINE SODIUM 0.088 MG TABLET PO SCH (06:01)
[2018-10-30] MEDS: HEPARIN SOD (PORCINE) 5,000 UNIT/ML 1 ML SYRINGE SUBCUT SCH ×3 (06:02→22:23)
[2018-10-30] MEDS: INSULIN LISPRO 100 UNIT/ML 3 ML VIAL SUBCUT SCH ×4 (07:35→22:22)
[2018-10-30] MEDS: FOLIC ACID 1 MG TABLET PO SCH (10:10)
[2018-10-30] MEDS: FERROUS SULFATE 325 MG TABLET PO SCH (10:10)
[2018-10-30] MEDS: SITAGLIPTIN PHOSPHATE 25 MG TABLET PO SCH (10:10)
[2018-10-30] MEDS: THIAMINE HCL 100 MG in NORMAL SALINE 50 ML IV SCH (10:12)
[2018-10-30] MEDS: ERTAPENEM SODIUM 0.5 GM in NORMAL SALINE 50 ML IV SCH (11:10)
[2018-10-30 20:19] LABS: ANION GAP 8 (5-19); BLOOD UREA NITROGEN 39 mg/dL (7-20); CARBON DIOXIDE 26 mmol/L (22-30); CHLORIDE 104 mmol/L (98-107); GLUCOSE 254 mg/dL (75-110); POTASSIUM 3.2 mmol/L (3.6-5.0); SODIUM 138.4 mmol/L (137-145)
--- NOTE | 2018-10-30 21:51 | PDOC PROGRESS REPORT ---
Subjective Progress Note for:: 10/30/18 Subjective:: Patient was seen by the bedside ,she has diarrhea ,loose stool ,associated hypokalemia Reason For Visit: ACUTE METABOLIC ACIDOSIS, HYPOTHERMIA TYPE I Physical Exam Vital Signs: Temp Pulse Resp BP Pulse Ox 97.0 F 84 16 129/82 H 100 10/30/18 19:10 10/30/18 19:10 10/30/18 19:10 10/30/18 19:10 10/30/18 19:10 Intake & Output 10/29/18 10/30/18 10/31/18 06:59 06:59 06:59 Intake Total 4119 2776 2691 Output Total 1050 2200 350 Balance 3069 576 2341 Weight 59.2 kg 66.5 kg Eye exam: PRESENT: PERRLA Respiratory exam: PRESENT: rhonchi Cardiovascular exam: PRESENT: +S1, +S2 GI/Abdominal exam: PRESENT: soft Neurological exam: PRESENT: alert Results Laboratory Results: 10/30/18 04:05 10/30/18 19:51 10/30/18 10/30/18 10/30/18 04:05 04:05 19:51 WBC 6.4 RBC 2.90 L Hgb 8.8 L Hct 26.6 L MCV 92 MCH 30.5 MCHC 33.3 RDW 20.1 H Plt Count 94 L Seg Neutrophils % 73.5 Lymphocytes % 18.7 Monocytes % 5.5 Eosinophils % 0.9 Basophils % 1.4 Absolute Neutrophils 4.7 Absolute Lymphocytes 1.2 Absolute Monocytes 0.4 Absolute Eosinophils 0.1 Absolute Basophils 0.1 Sodium 139.6 138.4 Potassium 3.1 L 3.2 L Chloride 106 104 Carbon Dioxide 24 26 Anion Gap 10 8 BUN 42 H 39 H Creatinine 4.16 H 4.37 H Est GFR ( Amer) 14 L 13 L Est GFR (Non-Af Amer) 11 L 11 L Glucose 292 H 254 H Calcium 7.9 L 8.0 L Total Bilirubin 0.4 AST 17 ALT 16 Alkaline Phosphatase 116 Total Protein 5.6 L Albumin 2.3 L 10/27/18 10/27/18 10/27/18 21:20 21:20 21:20 Creatine Kinase 77 CK-MB (CK-2) 3.26 Troponin I < 0.012 NT-Pro-B Natriuret Pep 61628 H 0410/28/18 10/28/18 03:48 03:48 09:19 Creatine Kinase 77 75 CK-MB (CK-2) 3.38 Troponin I < 0.012 NT-Pro-B Natriuret Pep 10/28/18 09:19 Creatine Kinase CK-MB (CK-2) 3.32 Troponin I < 0.012 NT-Pro-B Natriuret Pep Impressions: Chest X-Ray 10/27/18 15:34 IMPRESSION: 1. No acute pulmonary consolidation. 2. Cardiomegaly. No evidence for failure. Assessment & Plan - Diagnosis (1) Normal anion gap metabolic acidosis Is this a current diagnosis for this admission?: Yes Plan: continue IV fluid (2) Hypotension Qualifiers: Hypotension type: other hypotension type Qualified Code(s): I95.89 - Other hypotension Is this a current diagnosis for this admission?: Yes (3) Acute kidney injury Is this a current diagnosis for this admission?: Yes (4) Hyperkalemia Is this a current diagnosis for this admission?: Yes (5) Septic shock Is this a current diagnosis for this admission?: Yes (6) Anemia Qualifiers: Anemia type: unspecified type Qualified Code(s): D64.9 - Anemia, unspecified Is this a current diagnosis for this admission?: Yes (7) Hypokalemia Is this a current diagnosis for this admission?: Yes Plan: replace fluid (8) Diarrhea Qualifiers: Diarrhea type: unspecified type Qualified Code(s): R19.7 - Diarrhea, unspecified Is this a current diagnosis for this admission?: Yes
[2018-10-30] MEDS: POTASSIUM CHLORIDE 20 MEQ/50 ML RTU IV SCH (22:23)
[2018-10-30] MEDS: LOPERAMIDE HCL 2 MG CAPSULE PO PRN (22:23)
[2018-10-31] MEDS: POTASSIUM CHLORIDE 20 MEQ/50 ML RTU IV SCH (00:57)
[2018-10-31] MEDS: LOPERAMIDE HCL 2 MG CAPSULE PO PRN ×3 (04:45→19:34)
[2018-10-31] MEDS: HEPARIN SOD (PORCINE) 5,000 UNIT/ML 1 ML SYRINGE SUBCUT SCH ×3 (06:23→22:06)
[2018-10-31] MEDS: LEVOTHYROXINE SODIUM 0.088 MG TABLET PO SCH (06:24)
[2018-10-31 06:50] LABS: ANION GAP 8 (5-19); BLOOD UREA NITROGEN 38 mg/dL (7-20); CALCIUM 7.9 mg/dL (8.4-10.2); CARBON DIOXIDE 26 mmol/L (22-30); CHLORIDE 107 mmol/L (98-107); GLUCOSE 239 mg/dL (75-110); POTASSIUM 3.2 mmol/L (3.6-5.0); SODIUM 140.8 mmol/L (137-145)
[2018-10-31] MEDS ORDERED: POTASSI CL 20 MEQ/50 ML RIDER 20 MEQ/50 ML RTUPB IV ONE (08:00)
[2018-10-31] MEDS: INSULIN LISPRO 100 UNIT/ML 3 ML VIAL SUBCUT SCH ×4 (08:06→22:06)
[2018-10-31] MEDS: ERTAPENEM SODIUM 0.5 GM in NORMAL SALINE 50 ML IV SCH (09:42)
[2018-10-31] MEDS: FOLIC ACID 1 MG TABLET PO SCH (09:42)
[2018-10-31] MEDS: FERROUS SULFATE 325 MG TABLET PO SCH (09:42)
[2018-10-31] MEDS: SITAGLIPTIN PHOSPHATE 25 MG TABLET PO SCH (09:42)
[2018-10-31] MEDS: THIAMINE HCL 100 MG in NORMAL SALINE 50 ML IV SCH (09:42)
[2018-10-31] MEDS: DEXTROSE 5%-WATER 1000 ML 1,000 ML with SODIUM BICARBONATE 150 MEQ IV PRN ×4 (12:20→19:59)
[2018-10-31] MEDS: TRAMADOL HCL 50 MG TABLET PO PRN (19:32)
--- NOTE | 2018-10-31 20:10 | PDOC PROGRESS REPORT ---
Subjective Progress Note for:: 10/31/18 Subjective:: Patient was seen by the bedside ,she feels better ,she continues to have loose profuse diarrhea ,there is still acute kidney injury ,this is most likely pre- renal Reason For Visit: ACUTE METABOLIC ACIDOSIS, HYPOTHERMIA TYPE I Physical Exam Vital Signs: Temp Pulse Resp BP Pulse Ox 97.2 F 80 16 130/89 H 100 10/31/18 14:47 10/31/18 14:47 10/31/18 14:47 10/31/18 14:47 10/31/18 14:47 Intake & Output 10/30/18 10/31/18 11/01/18 06:59 06:59 06:59 Intake Total 2776 4011 1398 Output Total 2200 725 450 Balance 576 3286 948 Weight 66.5 kg 64.2 kg General appearance: PRESENT: no acute distress Eye exam: PRESENT: PERRLA Respiratory exam: PRESENT: clear to auscultation [place] Cardiovascular exam: PRESENT: +S1, +S2 GI/Abdominal exam: PRESENT: soft Neurological exam: PRESENT: alert Results Laboratory Results: 10/30/18 04:05 10/31/18 05:55 10/30/18 10/31/18 19:51 05:55 Sodium 138.4 140.8 Potassium 3.2 L 3.2 L Chloride 104 107 Carbon Dioxide 26 26 Anion Gap 8 8 BUN 39 H 38 H Creatinine 4.37 H 4.03 H Est GFR ( Amer) 13 L 14 L Est GFR (Non-Af Amer) 11 L 12 L Glucose 254 H 239 H Calcium 8.0 L 7.9 L 10/27/18 10/27/18 10/27/18 21:20 21:20 21:20 Creatine Kinase 77 CK-MB (CK-2) 3.26 Troponin I < 0.012 NT-Pro-B Natriuret Pep 93766 H 10/28/18 10/28/18 10/28/18 03:48 03:48 09:19 Creatine Kinase 77 75 CK-MB (CK-2) 3.38 Troponin I < 0.012 NT-Pro-B Natriuret Pep 10/28/18 09:19 Creatine Kinase CK-MB (CK-2) 3.32 Troponin I < 0.012 NT-Pro-B Natriuret Pep Impressions: Chest X-Ray 10/27/18 15:34 IMPRESSION: 1. No acute pulmonary consolidation. 2. Cardiomegaly. No evidence for failure. Assessment & Plan - Diagnosis (1) Normal anion gap metabolic acidosis Is this a current diagnosis for this admission?: Yes (2) Hypotension Qualifiers: Hypotension type: other hypotension type Qualified Code(s): I95.89 - Other hypotension Is this a current diagnosis for this admission?: Yes Plan: improved (3) Acute kidney injury Is this a current diagnosis for this admission?: Yes Plan: Continue IV Fluid (4) Hyperkalemia Is this a current diagnosis for this admission?: Yes (5) Septic shock Is this a current diagnosis for this admission?: Yes (6) Anemia Qualifiers: Anemia type: unspecified type Qualified Code(s): D64.9 - Anemia, unspecified Is this a current diagnosis for this admission?: Yes (7) Hypokalemia Is this a current diagnosis for this admission?: Yes Plan: This is probably from diarrhea ,replace K (8) Diarrhea Qualifiers: Diarrhea type: unspecified type Qualified Code(s): R19.7 - Diarrhea, unspecified Is this a current diagnosis for this admission?: Yes
[2018-11-01] MEDS: DEXTROSE 5%-WATER 1000 ML 1,000 ML with SODIUM BICARBONATE 150 MEQ IV PRN ×2 (03:36)
[2018-11-01] MEDS: LEVOTHYROXINE SODIUM 0.088 MG TABLET PO SCH (05:38)
[2018-11-01] MEDS: HEPARIN SOD (PORCINE) 5,000 UNIT/ML 1 ML SYRINGE SUBCUT SCH ×3 (05:38→22:18)
--- NOTE | 2018-11-01 07:54 | RADIOLOGY REPORT (SQ) ---
CT abdomen and pelvis without contrast on 11/01/2018 at 7:22 AM CLINICAL INDICATION: Persistent diarrhea TECHNIQUE: Multiple axial images are obtained throughout the abdomen and pelvis without the administration of contrast. This exam was performed according to our departmental dose-optimization program, which includes automated exposure control, adjustment of the mA and/or kV according to patient size and/or use of iterative reconstruction technique. Total DLP is 297.6 mGy*cm. COMPARISON: 08/30/2018 FINDINGS: Abdomen: There has been worsening of small to moderate-sized bilateral pleural effusions with mild adjacent bilateral lower lung atelectasis. There is worsening anasarca in the subcutaneous tissues. There is a small pericardial effusion. Gallstones are noted in the gallbladder. There has been mild worsening of small amount of ascites in the abdomen and pelvis. There are no renal or ureteral stones and no hydronephrosis. The unenhanced solid abdominal organs are otherwise unremarkable. Relative diffuse mild fat stranding is noted in the abdomen and pelvis likely related to the ascites and presumed volume overload and/or third spacing. There is bowel wall thickening of the colon relatively diffusely greatest involving the rectosigmoid colon consistent with a colitis. Most likely this represents an infectious colitis but please correlate clinically. Pelvis: Presacral edema is noted. Small amount of ascites is noted. Suero catheter is noted in the bladder. Pelvic organs appear unremarkable by CT. There is no pelvic adenopathy. Pelvic portion of the GI tract is otherwise unremarkable. Degenerative changes are noted in the spine. There is some subchondral sclerosis in the bilateral femoral heads raising question of changes of avascular necrosis. No acute bony abnormality is noted. IMPRESSION: 1. Worsening pleural effusions and anasarca and ascites consistent with some worsening volume overload and/or third spacing. 2. Cholelithiasis. 3. Diffuse colonic wall thickening worse in the rectosigmoid colon consistent with a colitis, most likely an infectious colitis but please correlate clinically.
[2018-11-01] MEDS: INSULIN LISPRO 100 UNIT/ML 3 ML VIAL SUBCUT SCH ×4 (08:44→21:07)
--- NOTE | 2018-11-01 09:09 | PDOC PROGRESS REPORT ---
Subjective Progress Note for:: 11/01/18 Subjective:: Patient's is currently doing same Patient still having diarrhea Patient's stool for C. difficile was negative I ordered a CT scan of the abdomen pelvis with severe diffuse colitis with some pleural effusion and some ascites Patient no history of the alcoholism's I remember the patient was admitted to the couple of months back with concern about the hepatorenal syndromes I do not know the patient seen by the nephrology in the past or not in patients cannot tell me Patient no showed about colonoscopy was done or not in the past Patient was also in the [facility] but patients does not know what the due date Patient's creatinine is still elevated Patient to denied any chest pain to than any shortness of the breath Discussed with the general surgery about the CT scan finding and he will suggest that he will look at the patient's but not sure what he can do Reason For Visit: ACUTE METABOLIC ACIDOSIS, HYPOTHERMIA TYPE I Physical Exam Vital Signs: Temp Pulse Resp BP Pulse Ox 95.8 F L 75 14 132/80 H 93 11/01/18 06:30 11/01/18 07:00 11/01/18 05:36 11/01/18 05:36 11/01/18 05:36 Intake & Output 10/31/18 11/01/18 11/02/18 06:59 06:59 06:59 Intake Total 4011 3398 Output Total 725 850 Balance 3286 2548 Weight 64.2 kg 66.2 kg General appearance: PRESENT: no acute distress, well-developed, well-nourished Head exam: PRESENT: atraumatic, normocephalic Eye exam: PRESENT: conjunctiva pink, EOMI, PERRLA. ABSENT: scleral icterus Ear exam: PRESENT: normal external ear exam Mouth exam: PRESENT: moist, tongue midline Neck exam: PRESENT: full ROM. ABSENT: carotid bruit, JVD, lymphadenopathy, thyromegaly Respiratory exam: PRESENT: clear to auscultation [place] Cardiovascular exam: PRESENT: RRR. ABSENT: diastolic murmur, rubs, systolic murmur Vascular exam: PRESENT: normal capillary refill GI/Abdominal exam: PRESENT: normal bowel sounds, soft. ABSENT: distended, gu arding, mass, organolmegaly, rebound, tenderness Rectal exam: PRESENT: deferred Extremities exam: ABSENT: pedal edema Neurological exam: PRESENT: alert, awake, oriented to person, oriented to place, oriented to time, oriented to situation. ABSENT: motor sensory deficit Psychiatric exam: PRESENT: appropriate affect, normal mood. ABSENT: homicidal ideation, suicidal ideation Skin exam: PRESENT: dry, intact, warm. ABSENT: cyanosis, rash Results Laboratory Results: 10/30/18 04:05 10/31/18 05:55 10/27/18 10/27/18 10/27/18 21:20 21:20 21:20 Creatine Kinase 77 CK-MB (CK-2) 3.26 Troponin I < 0.012 NT-Pro-B Natriuret Pep 89876 H 10/28/18 10/28/18 10/28/18 03:48 03:48 09:19 Creatine Kinase 77 75 CK-MB (CK-2) 3.38 Troponin I < 0.012 NT-Pro-B Natriuret Pep 10/28/18 09:19 Creatine Kinase CK-MB (CK-2) 3.32 Troponin I < 0.012 NT-Pro-B Natriuret Pep Impressions: Chest X-Ray 10/27/18 15:34 IMPRESSION: 1. No acute pulmonary consolidation. 2. Cardiomegaly. No evidence for failure. Abdomen/Pelvis CT 11/01/18 06:27 IMPRESSION: 1. Worsening pleural effusions and anasarca and ascites consistent with some worsening volume overload and/or third spacing. 2. Cholelithiasis. 3. Diffuse colonic wall thickening worse in the rectosigmoid colon consistent with a colitis, most likely an infectious colitis but please correlate clinically. Assessment & Plan - Diagnosis (1) Acute kidney injury Is this a current diagnosis for this admission?: Yes Plan: We will consult the nephrology (2) Anemia Qualifiers: Anemia type: unspecified type Qualified Code(s): D64.9 - Anemia, unspecified Is this a current diagnosis for this admission?: Yes (3) Diarrhea Qualifiers: Diarrhea type: unspecified type Qualified Code(s): R19.7 - Diarrhea, unspecified Is this a current diagnosis for this admission?: Yes Plan: We will start patient on probiotics Could be from colitis not sure We will add the Flagyl (4) Hypothermia Qualifiers: Encounter type: initial encounter Qualified Code(s): T68.XXXA - Hypother deven, initial encounter Is this a current diagnosis for this admission?: Yes Plan: From the infections most likely will get the blood culture urine culture (5) Metabolic acidosis Is this a current diagnosis for this admission?: Yes Plan: Continues with sodium bicarb We will get the ABG (6) Urinary tract infection Qualifiers: Urinary tract infection type: site unspecified Hematuria presence: with hematuria Qualified Code(s): N39.0 - Urinary tract infection, site not specifi ed; R31.9 - Hematuria, unspecified Is this a current diagnosis for this admission?: Yes Plan: Continuous IV antibiotic - Time Time Spent with patient: 15-24 minutes Medications reviewed and adjusted accordingly: Yes Anticipated discharge: Other Within: Other - Plan Summary Plan Summary: We will repeat the blood work Discussed with the surgery Consult for the nephrology Get an ABG
[2018-11-01] MEDS: FERROUS SULFATE 325 MG TABLET PO SCH (09:10)
[2018-11-01] MEDS: TRAMADOL HCL 50 MG TABLET PO PRN (09:10)
[2018-11-01] MEDS: FUROSEMIDE INJ/PF 20 MG/2 ML SDV IV SCH (09:10)
[2018-11-01] MEDS: THIAMINE HCL 100 MG in NORMAL SALINE 50 ML IV SCH (09:11)
[2018-11-01] MEDS: FOLIC ACID 1 MG TABLET PO SCH (09:11)
[2018-11-01] MEDS: LOPERAMIDE HCL 2 MG CAPSULE PO PRN (09:11)
[2018-11-01] MEDS: ERTAPENEM SODIUM 0.5 GM in NORMAL SALINE 50 ML IV SCH (09:11)
[2018-11-01] MEDS: SITAGLIPTIN PHOSPHATE 25 MG TABLET PO SCH (09:15)
[2018-11-01] MEDS ORDERED: 1/2 NORMAL SALINE 1,000 ML IV PRN (09:33)
[2018-11-01] MEDS: METRONIDAZOLE 500 MG/NS RTU 500 MG/100 ML RTUPB IV SCH ×3 (11:54→23:37)
[2018-11-01 12:11] LABS: ABSOLUTE BASOPHILS # (AUTO) 0.1 10^3/uL (0.0-0.2); ABSOLUTE EOSINOPHILS # (AUTO) 0.1 10^3/uL (0.0-0.6); ABSOLUTE LYMPHOCYTES (AUTO) 0.7 10^3/uL (0.5-4.7); ABSOLUTE MONOCYTES (AUTO) 0.3 10^3/uL (0.1-1.4); ABSOLUTE NEUT (AUTO) 7.8 10^3/uL (1.7-8.2); BASOPHILS % (AUTO) 0.8 % (0-2); EOSINOPHILS % (AUTO) 0.7 % (0-6); HEMATOCRIT 27.4 % (36.0-47.0); HEMOGLOBIN 9.2 g/dL (12.0-15.5); LYMPHOCYTES % (AUTO) 7.8 % (13-45); MEAN CORPUSCULAR HEMOGLOBIN 31.1 pg (27.0-33.4); MEAN CORPUSCULAR HGB CONC 33.4 g/dL (32.0-36.0); MEAN CORPUSCULAR VOLUME 93 fl (80-97); MONOCYTES % (AUTO) 3.9 % (3-13); RED BLOOD COUNT 2.95 10^6/uL (3.72-5.28); RED CELL DISTRIBUTION WIDTH 19.3 % (11.5-14.0); SEGMENTED NEUTROPHILS % (AUTO) 86.8 % (42-78); TOTAL CELLS COUNTED % (AUTO) 100 %; WHITE BLOOD COUNT 8.9 10^3/uL (4.0-10.5)
[2018-11-01 12:24] LABS: ALANINE AMINOTRANSFERASE 19 U/L (9-52); ALBUMIN 2.3 g/dL (3.5-5.0); ALKALINE PHOSPHATASE 129 U/L (38-126); ANION GAP 6 (5-19); ASPARTATE AMINO TRANSFERASE 18 U/L (14-36); BILIRUBIN,DIRECT 0.4 mg/dL (0.0-0.4); BILIRUBIN,TOTAL 0.6 mg/dL (0.2-1.3); BLOOD UREA NITROGEN 34 mg/dL (7-20); CALCIUM 7.5 mg/dL (8.4-10.2); CARBON DIOXIDE 35 mmol/L (22-30); CHLORIDE 96 mmol/L (98-107); GLUCOSE 347 mg/dL (75-110); POTASSIUM 3.4 mmol/L (3.6-5.0); SODIUM 136.9 mmol/L (137-145); TOTAL PROTEIN 5.5 g/dL (6.3-8.2)
[2018-11-01 12:41] LABS: PLATELET COUNT 97 10^3/uL (150-450)
[2018-11-01 14:21] LABS: ARTERIAL BLOOD BASE EXCESS 13.2 mmol/L; ARTERIAL BLOOD FIO2 21%; ARTERIAL BLOOD H2CO3 1.66 mmol/L (1.05-1.35); ARTERIAL BLOOD HCO3 38.8 mmol/L (20-24); ARTERIAL BLOOD O2 SATURATION 90.1 % (94-98); ARTERIAL BLOOD PCO2 55.1 mmHg (35-45); ARTERIAL BLOOD PH 7.47 (7.35-7.45); ARTERIAL BLOOD TOTAL CO2 40.4 mmol/L (21-25)
[2018-11-01] MEDS ORDERED: POTASSIUM CHLORIDE 20 MEQ PACKET PO ONE (16:00)
--- NOTE | 2018-11-01 21:44 | PDOC CONSULTATION ---
Consultation Consult Date: 11/01/18 Attending physician:: FIDEL WILKINS Consult reason:: diarrhea,colitis History of Present Illness Admission Date/PCP: 10/27/18 19:58 DENISE MURRELL MD History of Present Illness: PANFILO BARBER is a 48 year old female, Patient was brought to the emergency room for evaluation of hypotension, elevated blood glucose, there was severe normal anion gap metabolic acidosis,Acute kidney injury, hyperglycemia,There was severe anemia with hemoglobin of 7,Resuscitation was initiated in the emergency room with blood transfusion, she was also severely hypothermic.Patient condition is critical, BUN is 43 creatinine is 4.29.History difficult to obtain in this patient because she is very lethargic she is difficult to question, and was admitted to [facility] in [place] last month for a prolonged period and no records are curretly available. she had a colonoscopy here in [place] by a gi physician, however cannot obtain those records. she was told she had ulcers in her stomach and colon. Much of the above hx was obtaine over the phone with a conversation with her daughter. however her daughter is only minimally involved with her care. according to her daughter she was told she has cirrhosis, and has had watery diarrhea for at least months if not longer. because of an elevated lipase, a ct scan was obtained here early this morning showing some mild free fluid and anasarca as well as some thickening of her rectosigmoid junction. surgery was consulted for this and to help manage her diarrhea. she has also had a number of episodes of hypothermia in the hospital over last couple of days down to a temp of 94. Past Medical History Cardiac Medical History: Reports: Hypertension Endocrine Medical History: Reports: Diabetes Mellitus Type 1, Hypothyroidism GI Medical History: Reports: Cirrhosis Social History Lives with: Family Smoking Status: Former Smoker Cigarettes Packs Per Day: 0.5 Family History Family History: Reviewed & Not Pertinent Parental Family History Reviewed: No Children Family History Reviewed: NA Sibling(s) Family History Reviewed.: NA Medication/Allergy Home Medications: Ferrous Sulfate [Feosol] 325 mg PO DAILY 10/27/18 Folic Acid [Folvite 1 mg Tablet] 1 mg PO DAILY 10/27/18 Furosemide [Lasix 40 mg Tablet] 40 mg PO DAILY 10/27/18 Insulin Lispro [Humalog Kwikpen] 5 unit SQ TID 10/27/18 Levothyroxine Sodium [Synthroid 0.088 mg Tablet] 0.088 mg PO Q6AM 10/27/18 Meloxicam [Mobic] 7.5 mg PO BIDP PRN 10/27/18 Montelukast Sodium [Singulair 10 mg Tablet] 10 mg PO QHS 10/27/18 Omeprazole 20 mg PO BID 10/27/18 Oxycodone HCl [Oxy-Ir 5 mg Tablet] 5 mg PO Q8HP PRN 10/27/18 Sitagliptin Phosphate [Januvia 25 mg Tablet] 25 mg PO DAILY 10/27/18 Spironolactone [Aldactone 25 mg Tablet] 25 mg PO DAILY 10/27/18 Allergies/Adverse Reactions: No Known Allergies Allergy (Unverified 10/27/18 18:55) Review of Systems ROS unobtainable: Due to mental status Physical Exam Vital Signs: Temp Pulse Resp BP Pulse Ox 97.6 F 74 16 104/74 100 11/01/18 19:14 11/01/18 19:14 11/01/18 19:14 11/01/18 19:14 11/01/18 19:14 Intake & Output 10/31/18 11/01/18 11/02/18 06:59 06:59 06:59 Intake Total 4011 3398 2163 Output Total 725 412 650 Balance 3286 4408 1513 Weight 64.2 kg 66.2 kg General appearance: PRESENT: mild distress, other - chronically ill female, leth argic, difficulty answering questions. Eye exam: PRESENT: conjunctiva pale, EOMI Ear exam: PRESENT: TM's normal bilaterally Mouth exam: PRESENT: moist Teeth exam: PRESENT: poor dentation Neck exam: PRESENT: full ROM Respiratory exam: PRESENT: clear to auscultation [place] Cardiovascular exam: PRESENT: RRR Pulses: PRESENT: normal carotid pulses, normal radial pulses, normal femoral pulses, +1 pedal pulses bilateral GI/Abdominal exam: PRESENT: soft, tenderness - mild tenderness over epigastrium to deep palpation, no rebound tenderness Rectal exam: PRESENT: deferred Extremities exam: PRESENT: full ROM, +2 edema Musculoskeletal exam: PRESENT: other - able to transfer to wheelchair Neurological exam: PRESENT: altered, other - lethargic Psychiatric exam: PRESENT: depressed, flat affect Skin exam: PRESENT: dry Results Laboratory Results: 11/01/18 11:55 11/01/18 11:55 11/01/18 11/01/18 11/01/18 10:20 11:55 11:55 WBC 8.9 RBC 2.95 L Hgb 9.2 L Hct 27.4 L MCV 93 MCH 31.1 MCHC 33.4 RDW 19.3 H Plt Count 97 L Seg Neutrophils % 86.8 H Lymphocytes % 7.8 L Monocytes % 3.9 Eosinophils % 0.7 Basophils % 0.8 Absolute Neutrophils 7.8 Absolute Lymphocytes 0.7 Absolute Monocytes 0.3 Absolute Eosinophils 0.1 Absolute Basophils 0.1 Carbonic Acid 1.66 H HCO3/H2CO3 Ratio 23:1 ABG pH 7.47 H ABG pCO2 55.1 H ABG pO2 56.0 L ABG HCO3 38.8 H ABG O2 Saturation 90.1 L ABG Base Excess 13.2 FiO2 21% Sodium 136.9 L Potassium 3.4 L Chloride 96 L Carbon Dioxide 35 H Anion Gap 6 BUN 34 H Creatinine 3.24 H Est GFR ( Amer) 18 L Est GFR (Non-Af Amer) 15 L Glucose 347 H Calcium 7.5 L Total Bilirubin 0.6 AST 18 ALT 19 Alkaline Phosphatase 129 H Total Protein 5.5 L Albumin 2.3 L 10/27/18 19:45 Blood Blood Culture - Final NO GROWTH IN 5 DAYS 10/27/18 16:35 Blood Blood Culture - Final NO GROWTH IN 5 DAYS 10/27/18 10/27/18 10/27/18 21:20 21:20 21:20 Creatine Kinase 77 CK-MB (CK-2) 3.26 Troponin I < 0.012 NT-Pro-B Natriuret Pep 68738 H 10/28/18 10/28/18 10/28/18 03:48 03:48 09:19 Creatine Kinase 77 75 CK-MB (CK-2) 3.38 Troponin I < 0.012 NT-Pro-B Natriuret Pep 10/28/18 09:19 Creatine Kinase CK-MB (CK-2) 3.32 Troponin I < 0.012 NT-Pro-B Natriuret Pep Impressions: Chest X-Ray 10/27/18 15:34 IMPRESSION: 1. No acute pulmonary consolidation. 2. Cardiomegaly. No evidence for failure. Abdomen/Pelvis CT 11/01/18 06:27 IMPRESSION: 1. Worsening pleural effusions and anasarca and ascites consistent with some worsening volume overload and/or third spacing. 2. Cholelithiasis. 3. Diffuse colonic wall thickening worse in the rectosigmoid colon consistent with a colitis, most likely an infectious colitis but please correlate clinically. Assessment & Plan - Diagnosis (1) Diarrhea Qualifiers: Diarrhea type: unspecified type Qualified Code(s): R19.7 - Diarrhea, unspecified Is this a current diagnosis for this admission?: Yes - Plan Summary Plan Summary: Impression hx of DKA, \ renal insufficiency pancratitis chronic dirrhea with thickening of colon on ct c/w colitis hypothermia, ?etiol malnutrition. etoh abuse with cirrhosis. current ct scan show thickened colon and rectosigmoid recommend cont iv hydration obtain records from [place] reportedly she has had a colonoscopy by Bennie a few weeks ago and reported colonic ulcers would hold off a repeat colonoscopy for now and obtain reports on saturday repeat lipase and amylase and follow current pancratitis
[2018-11-01 21:53] LABS: ALANINE AMINOTRANSFERASE 20 U/L (9-52); ALBUMIN 2.4 g/dL (3.5-5.0); ALKALINE PHOSPHATASE 122 U/L (38-126); AMYLASE 117 U/L (30-110); ANION GAP 5 (5-19); ASPARTATE AMINO TRANSFERASE 19 U/L (14-36); BILIRUBIN,DIRECT 0.4 mg/dL (0.0-0.4); BILIRUBIN,TOTAL 0.4 mg/dL (0.2-1.3); BLOOD UREA NITROGEN 33 mg/dL (7-20); CALCIUM 7.6 mg/dL (8.4-10.2); CARBON DIOXIDE 36 mmol/L (22-30); CHLORIDE 98 mmol/L (98-107); POTASSIUM 3.9 mmol/L (3.6-5.0); SODIUM 139.2 mmol/L (137-145); TOTAL PROTEIN 5.9 g/dL (6.3-8.2)
[2018-11-01 21:54] LABS: GLUCOSE 41 mg/dL (75-110)
[2018-11-01] MEDS: DEXTROSE 5%-1/2 NORMAL SALINE 1,000 ML IV PRN (22:53)
[2018-11-01] MEDS: NYSTATIN TOPICAL POWDER 15 GM TP PRN (23:39)
[2018-11-02] MEDS: METRONIDAZOLE 500 MG/NS RTU 500 MG/100 ML RTUPB IV SCH ×4 (05:47→23:46)
[2018-11-02] MEDS: LEVOTHYROXINE SODIUM 0.088 MG TABLET PO SCH (05:47)
[2018-11-02] MEDS: HEPARIN SOD (PORCINE) 5,000 UNIT/ML 1 ML SYRINGE SUBCUT SCH ×3 (05:47→21:13)
[2018-11-02] MEDS: INSULIN LISPRO 100 UNIT/ML 3 ML VIAL SUBCUT SCH ×4 (07:49→21:13)
[2018-11-02 08:32] LABS: ABSOLUTE BASOPHILS # (AUTO) 0.1 10^3/uL (0.0-0.2); ABSOLUTE EOSINOPHILS # (AUTO) 0.1 10^3/uL (0.0-0.6); ABSOLUTE LYMPHOCYTES (AUTO) 1.2 10^3/uL (0.5-4.7); ABSOLUTE MONOCYTES (AUTO) 0.5 10^3/uL (0.1-1.4); BASOPHILS % (AUTO) 0.7 % (0-2); EOSINOPHILS % (AUTO) 1.3 % (0-6); HEMATOCRIT 27.8 % (36.0-47.0); HEMOGLOBIN 9.2 g/dL (12.0-15.5); LYMPHOCYTES % (AUTO) 17.5 % (13-45); MEAN CORPUSCULAR HEMOGLOBIN 31.1 pg (27.0-33.4); MEAN CORPUSCULAR VOLUME 94 fl (80-97); MONOCYTES % (AUTO) 7.4 % (3-13); PLATELET COUNT 104 10^3/uL (150-450); RED BLOOD COUNT 2.94 10^6/uL (3.72-5.28); RED CELL DISTRIBUTION WIDTH 19.1 % (11.5-14.0); SEGMENTED NEUTROPHILS % (AUTO) 73.1 % (42-78); TOTAL CELLS COUNTED % (AUTO) 100 %; WHITE BLOOD COUNT 6.9 10^3/uL (4.0-10.5)
[2018-11-02 08:36] LABS: ANION GAP 7 (5-19); BLOOD UREA NITROGEN 31 mg/dL (7-20); CALCIUM 7.6 mg/dL (8.4-10.2); CARBON DIOXIDE 33 mmol/L (22-30); CHLORIDE 98 mmol/L (98-107); GLUCOSE 238 mg/dL (75-110); POTASSIUM 3.9 mmol/L (3.6-5.0); SODIUM 137.6 mmol/L (137-145)
[2018-11-02] MEDS: ERTAPENEM SODIUM 0.5 GM in NORMAL SALINE 50 ML IV SCH (09:55)
[2018-11-02] MEDS: FUROSEMIDE INJ/PF 20 MG/2 ML SDV IV SCH (09:55)
[2018-11-02] MEDS: FOLIC ACID 1 MG TABLET PO SCH (09:55)
[2018-11-02] MEDS: THIAMINE HCL 100 MG in NORMAL SALINE 50 ML IV SCH (09:55)
[2018-11-02] MEDS: FERROUS SULFATE 325 MG TABLET PO SCH (09:55)
[2018-11-02] MEDS: SITAGLIPTIN PHOSPHATE 25 MG TABLET PO SCH (09:55)
--- NOTE | 2018-11-02 10:09 | PDOC PROGRESS REPORT ---
Subjective Progress Note for:: 11/02/18 Subjective:: Patient is currently doing fair Denied any chest pain to than any shortness of the breath Patient seen by general surgery Reason For Visit: ACUTE METABOLIC ACIDOSIS, HYPOTHERMIA TYPE I Physical Exam Vital Signs: Temp Pulse Resp BP Pulse Ox 97.4 F 77 16 117/78 97 11/02/18 06:59 11/02/18 07:00 11/02/18 06:59 11/02/18 06:59 11/02/18 06:59 Intake & Output 11/01/18 11/02/18 11/03/18 06:59 06:59 06:59 Intake Total 3398 3286 Output Total 850 1450 Balance 2548 1836 Weight 66.2 kg 65.1 kg General appearance: PRESENT: no acute distress, well-developed, well-nourished Head exam: PRESENT: atraumatic, normocephalic Eye exam: PRESENT: conjunctiva pink, EOMI, PERRLA. ABSENT: scleral icterus Ear exam: PRESENT: normal external ear exam Mouth exam: PRESENT: moist, tongue midline Neck exam: PRESENT: full ROM. ABSENT: carotid bruit, JVD, lymphadenopathy, thyromegaly Respiratory exam: PRESENT: clear to auscultation [place] Cardiovascular exam: PRESENT: RRR. ABSENT: diastolic murmur, rubs, systolic murmur Vascular exam: PRESENT: normal capillary refill GI/Abdominal exam: PRESENT: normal bowel sounds, soft. ABSENT: distended, guarding, mass, organolmegaly, rebound, tenderness Rectal exam: PRESENT: deferred Extremities exam: ABSENT: pedal edema Neurological exam: PRESENT: alert, awake, oriented to person, oriented to place, oriented to time, oriented to situation, CN II-XII grossly intact. ABSENT: mot or sensory deficit Psychiatric exam: PRESENT: appropriate affect, normal mood. ABSENT: homicidal ideation, suicidal ideation Skin exam: PRESENT: dry, intact, warm. ABSENT: cyanosis, rash Results Laboratory Results: 11/02/18 07:52 11/02/18 07:52 11/01/18 11/01/18 11/01/18 10:20 11:55 11:55 WBC 8.9 RBC 2.95 L Hgb 9.2 L Hct 27.4 L MCV 93 MCH 31.1 MCHC 33.4 RDW 19.3 H Plt Count 97 L Seg Neutrophils % 86.8 H Lymphocytes % 7.8 L Monocytes % 3.9 Eosinophils % 0.7 Basophils % 0.8 Absolute Neutrophils 7.8 Absolute Lymphocytes 0.7 Absolute Monocytes 0.3 Absolute Eosinophils 0.1 Absolute Basophils 0.1 Carbonic Acid 1.66 H HCO3/H2CO3 Ratio 23:1 ABG pH 7.47 H ABG pCO2 55.1 H ABG pO2 56.0 L ABG HCO3 38.8 H ABG O2 Saturation 90.1 L ABG Base Excess 13.2 FiO2 21% Sodium 136.9 L Potassium 3.4 L Chloride 96 L Carbon Dioxide 35 H Anion Gap 6 BUN 34 H Creatinine 3.24 H Est GFR ( Amer) 18 L Est GFR (Non-Af Amer) 15 L Glucose 347 H Calcium 7.5 L Total Bilirubin 0.6 AST 18 ALT 19 Alkaline Phosphatase 129 H Total Protein 5.5 L Albumin 2.3 L Amylase Lipase Stool Occult Blood Stool for White Cells 11/01/18 11/01/18 11/01/18 21:28 23:45 23:45 WBC RBC Hgb Hct MCV MCH MCHC RDW Plt Count Seg Neutrophils % Lymphocytes % Monocytes % Eosinophils % Basophils % Absolute Neutrophils Absolute Lymphocytes Absolute Monocytes Absolute Eosinophils Absolute Basophils Carbonic Acid HCO3/H2CO3 Ratio ABG pH ABG pCO2 ABG pO2 ABG HCO3 ABG O2 Saturation ABG Base Excess FiO2 Sodium 139.2 Potassium 3.9 Chloride 98 Carbon Dioxide 36 H Anion Gap 5 BUN 33 H Creatinine 3.24 H Est GFR ( Amer) 18 L Est GFR (Non-Af Amer) 15 L Glucose 41 L Calcium 7.6 L Total Bilirubin 0.4 AST 19 ALT 20 Alkaline Phosphatase 122 Total Protein 5.9 L Albumin 2.4 L Amylase 117 H Lipase 208.0 Stool Occult Blood POSITIVE Stool for White Cells NO WBCs SEEN 11/02/18 11/02/18 07:52 07:52 WBC 6.9 RBC 2.94 L Hgb 9.2 L Hct 27.8 L MCV 94 MCH 31.1 MCHC 33.0 RDW 19.1 H Plt Count 104 L Seg Neutrophils % 73.1 Lymphocytes % 17.5 Monocytes % 7.4 Eosinophils % 1.3 Basophils % 0.7 Absolute Neutrophils 5.0 Absolute Lymphocytes 1.2 Absolute Monocytes 0.5 Absolute Eosinophils 0.1 Absolute Basophils 0.1 Carbonic Acid HCO3/H2CO3 Ratio ABG pH ABG pCO2 ABG pO2 ABG HCO3 ABG O2 Saturation ABG Base Excess FiO2 Sodium 137.6 Potassium 3.9 Chloride 98 Carbon Dioxide 33 H Anion Gap 7 BUN 31 H Creatinine 3.25 H Est GFR ( Amer) 18 L Est GFR (Non-Af Amer) 15 L Glucose 238 H Calcium 7.6 L Total Bilirubin AST ALT Alkaline Phosphatase Total Protein Albumin Amylase Lipase Stool Occult Blood Stool for White Cells 10/27/18 19:45 Blood Blood Culture - Final NO GROWTH IN 5 DAYS 10/27/18 16:35 Blood Blood Culture - Final NO GROWTH IN 5 DAYS 10/27/18 10/27/18 10/27/18 21:20 21:20 21:20 Creatine Kinase 77 CK-MB (CK-2) 3.26 Troponin I < 0.012 NT-Pro-B Natriuret Pep 66738 H 10/28/18 10/28/18 10/28/18 03:48 03:48 09:19 Creatine Kinase 77 75 CK-MB (CK-2) 3.38 Troponin I < 0.012 NT-Pro-B Natriuret Pep 10/28/18 09:19 Creatine Kinase CK-MB (CK-2) 3.32 Troponin I < 0.012 NT-Pro-B Natriuret Pep Impressions: Chest X-Ray 10/27/18 15:34 IMPRESSION: 1. No acute pulmonary consolidation. 2. Cardiomegaly. No evidence for failure. Abdomen/Pelvis CT 11/01/18 06:27 IMPRESSION: 1. Worsening pleural effusions and anasarca and ascites consistent with some worsening volume overload and/or third spacing. 2. Cholelithiasis. 3. Diffuse colonic wall thickening worse in the rectosigmoid colon consistent with a colitis, most likely an infectious colitis but please correlate clinically. Assessment & Plan - Diagnosis (1) Acute kidney injury Is this a current diagnosis for this admission?: Yes Plan: Currently all improving continues current IV fluid (2) Anemia Qualifiers: Anemia type: unspecified type Qualified Code(s): D64.9 - Anemia, unspe cified Is this a current diagnosis for this admission?: Yes Plan: Consult the GI (3) Diarrhea Qualifiers: Diarrhea type: unspecified type Qualified Code(s): R19.7 - Diarrhea, unspecified Is this a current diagnosis for this admission?: Yes Plan: We will start patient on probiotics Could be from colitis not sure We will add the Flagyl (4) Hypothermia Qualifiers: Encounter type: initial encounter Qualified Code(s): T68.XXXA - Hypothermia, initial encounter Is this a current diagnosis for this admission?: Yes Plan: From the infections most likely will get the blood culture urine culture (5) Metabolic acidosis Is this a current diagnosis for this admission?: Yes Plan: Currently all resolved (6) Urinary tract infection Qualifiers: Urinary tract infection type: site unspecified Hematuria presence: with hematuria Qualified Code(s): N39.0 - Urinary tract infection, site not specified; R31.9 - Hematuria, unspecified Is this a current diagnosis for this admission?: Yes Plan: Continuous IV antibiotic - Time Time Spent with patient: 15-24 minutes Medications reviewed and adjusted accordingly: Yes Anticipated discharge: Other Within: Other - Plan Summary Plan Summary: Consider GI consult for further evaluations with the ongoing possible colitis with other etiology
--- NOTE | 2018-11-02 12:07 | PDOC PROGRESS REPORT ---
Subjective Progress Note for:: 11/02/18 Subjective:: This is a 48-year-old female with alcoholism, diabetes, cirrhosis, and significant medical noncompliance. The patient presented to the hospital with acidosis, likely related to her diabetes. Patient complains of chronic abdominal pain with diarrhea. She is awake and alert today. She is conversive. She reports that her abdominal pain is diffuse, throughout the abdomen. It is mild to moderate in nature. The patient denies any diarrhea this morning. She denies chest pain, shortness of breath, dizziness, fevers, chills, nausea, vomiting. Reason For Visit: ACUTE METABOLIC ACIDOSIS, HYPOTHERMIA TYPE I Physical Exam Vital Signs: Temp Pulse Resp BP Pulse Ox 97.4 F 77 16 117/78 97 11/02/18 06:59 11/02/18 07:00 11/02/18 06:59 11/02/18 06:59 11/02/18 06:59 Intake & Output 11/01/18 11/02/18 11/03/18 06:59 06:59 06:59 Intake Total 3398 3286 101 Output Total 850 1450 Balance 2548 1836 101 Weight 66.2 kg 65.1 kg General appearance: PRESENT: no acute distress, cooperative Head exam: PRESENT: atraumatic, normocephalic Eye exam: PRESENT: EOMI, PERRLA Mouth exam: PRESENT: moist, neck supple Neck exam: ABSENT: meningismus, tenderness, thyromegaly, tracheal deviation Respiratory exam: PRESENT: symmetrical, unlabored. ABSENT: accessory muscle use, chest wall tenderness, tachypnea Cardiovascular exam: PRESENT: RRR Pulses: PRESENT: normal radial pulses Vascular exam: PRESENT: normal capillary refill. ABSENT: pallor GI/Abdominal exam: PRESENT: distended - Mild, soft. ABSENT: firm, guarding, rebound, rigid, tenderness Rectal exam: PRESENT: deferred Extremities exam: ABSENT: clubbing Musculoskeletal exam: ABSENT: deformity Neurological exam: PRESENT: alert, awake, oriented to person, oriented to place, oriented to time, oriented to situation Psychiatric exam: ABSENT: agitated, anxious, depressed Focused psych exam: ABSENT: delusional Skin exam: ABSENT: cyanosis, erythema, jaundice Results Laboratory Results: 11/02/18 07:52 11/02/18 07:52 11/01/18 11/01/18 11/01/18 10:20 11:55 11:55 WBC 8.9 RBC 2.95 L Hgb 9.2 L Hct 27.4 L MCV 93 MCH 31.1 MCHC 33.4 RDW 19.3 H Plt Count 97 L Seg Neutrophils % 86.8 H Lymphocytes % 7.8 L Monocytes % 3.9 Eosinophils % 0.7 Basophils % 0.8 Absolute Neutrophils 7.8 Absolute Lymphocytes 0.7 Absolute Monocytes 0.3 Absolute Eosinophils 0.1 Absolute Basophils 0.1 Carbonic Acid 1.66 H HCO3/H2CO3 Ratio 23:1 ABG pH 7.47 H ABG pCO2 55.1 H ABG pO2 56.0 L ABG HCO3 38.8 H ABG O2 Saturation 90.1 L ABG Base Excess 13.2 FiO2 21% Sodium 136.9 L Potassium 3.4 L Chloride 96 L Carbon Dioxide 35 H Anion Gap 6 BUN 34 H Creatinine 3.24 H Est GFR ( Amer) 18 L Est GFR (Non-Af Amer) 15 L Glucose 347 H Calcium 7.5 L Total Bilirubin 0.6 AST 18 ALT 19 Alkaline Phosphatase 129 H Total Protein 5.5 L Albumin 2.3 L Amylase Lipase Stool Occult Blood Stool for White Cells 11/01/18 11/01/18 11/01/18 21:28 23:45 23:45 WBC RBC Hgb Hct MCV MCH MCHC RDW Plt Count Seg Neutrophils % Lymphocytes % Monocytes % Eosinophils % Basophils % Absolute Neutrophils Absolute Lymphocytes Absolute Monocytes Absolute Eosinophils Absolute Basophils Carbonic Acid HCO3/H2CO3 Ratio ABG pH ABG pCO2 ABG pO2 ABG HCO3 ABG O2 Saturation ABG Base Excess FiO2 Sodium 139.2 Potassium 3.9 Chloride 98 Carbon Dioxide 36 H Anion Gap 5 BUN 33 H Creatinine 3.24 H Est GFR ( Amer) 18 L Est GFR (Non-Af Amer) 15 L Glucose 41 L Calcium 7.6 L Total Bilirubin 0.4 AST 19 ALT 20 Alkaline Phosphatase 122 Total Protein 5.9 L Albumin 2.4 L Amylase 117 H Lipase 208.0 Stool Occult Blood POSITIVE Stool for White Cells NO WBCs SEEN 11/02/18 11/02/18 07:52 07:52 WBC 6.9 RBC 2.94 L Hgb 9.2 L Hct 27.8 L MCV 94 MCH 31.1 MCHC 33.0 RDW 19.1 H Plt Count 104 L Seg Neutrophils % 73.1 Lymphocytes % 17.5 Monocytes % 7.4 Eosinophils % 1.3 Basophils % 0.7 Absolute Neutrophils 5.0 Absolute Lymphocytes 1.2 Absolute Monocytes 0.5 Absolute Eosinophils 0.1 Absolute Basophils 0.1 Carbonic Acid HCO3/H2CO3 Ratio ABG pH ABG pCO2 ABG pO2 ABG HCO3 ABG O2 Saturation ABG Base Excess FiO2 Sodium 137.6 Potassium 3.9 Chloride 98 Carbon Dioxide 33 H Anion Gap 7 BUN 31 H Creatinine 3.25 H Est GFR ( Amer) 18 L Est GFR (Non-Af Amer) 15 L Glucose 238 H Calcium 7.6 L Total Bilirubin AST ALT Alkaline Phosphatase Total Protein Albumin Amylase Lipase Stool Occult Blood Stool for White Cells 10/27/18 19:45 Blood Blood Culture - Final NO GROWTH IN 5 DAYS 10/27/18 16:35 Blood Blood Culture - Final NO GROWTH IN 5 DAYS 10/27/18 10/27/18 10/27/18 21:20 21:20 21:20 Creatine Kinase 77 CK-MB (CK-2) 3.26 Troponin I < 0.012 NT-Pro-B Natriuret Pep 87268 H 10/28/18 10/28/18 10/28/18 03:48 03:48 09:19 Creatine Kinase 77 75 CK-MB (CK-2) 3.38 Troponin I < 0.012 NT-Pro-B Natriuret Pep 10/28/18 09:19 Creatine Kinase CK-MB (CK-2) 3.32 Troponin I < 0.012 NT-Pro-B Natriuret Pep Impressions: Chest X-Ray 10/27/18 15:34 IMPRESSION: 1. No acute pulmonary consolidation. 2. Cardiomegaly. No evidence for failure. Abdomen/Pelvis CT 11/01/18 06:27 IMPRESSION: 1. Worsening pleural effusions and anasarca and ascites consistent with some worsening volume overload and/or third spacing. 2. Cholelithiasis. 3. Diffuse colonic wall thickening worse in the rectosigmoid colon consistent with a colitis, most likely an infectious colitis but please correlate clinically. Assessment & Plan - Diagnosis (1) Diarrhea Qualifiers: Diarrhea type: unspecified type Qualified Code(s): R19.7 - Diarrhea, unspecified Is this a current diagnosis for this admission?: Yes - Plan Summary Plan Summary: This is a 48-year-old female with multiple medical problems. She has a history of alcoholism and cirrhosis. The patient complains of abdominal pain. Her abdominal exam is benign today. The patient also reports diarrhea. Much of her diet consists of alcohol. Loose watery stools are not unexpected with alcoholic patients. I cannot identify any obvious surgical problem. The patient had a colonoscopy by Dr. Avery 2 weeks ago. I would not recommend any further interventions at this time. I will see the patient again on an as-needed basis. Please renotify with any questions or concerns.
[2018-11-02] MEDS: DEXTROSE 5%-1/2 NORMAL SALINE 1,000 ML IV PRN (17:21)
[2018-11-02] MEDS: NYSTATIN TOPICAL POWDER 15 GM TP PRN (21:00)
[2018-11-03] MEDS: LOPERAMIDE HCL 2 MG CAPSULE PO PRN ×3 (00:30→21:35)
[2018-11-03] MEDS: NYSTATIN TOPICAL POWDER 15 GM TP PRN (00:31)
[2018-11-03] MEDS: METRONIDAZOLE 500 MG/NS RTU 500 MG/100 ML RTUPB IV SCH ×4 (05:26→23:16)
[2018-11-03] MEDS: LEVOTHYROXINE SODIUM 0.088 MG TABLET PO SCH (05:26)
[2018-11-03] MEDS: HEPARIN SOD (PORCINE) 5,000 UNIT/ML 1 ML SYRINGE SUBCUT SCH ×3 (05:28→21:36)
[2018-11-03 06:59] LABS: ANION GAP 9 (5-19); BLOOD UREA NITROGEN 31 mg/dL (7-20); CARBON DIOXIDE 32 mmol/L (22-30); CHLORIDE 98 mmol/L (98-107); GLUCOSE 97 mg/dL (75-110); POTASSIUM 3.6 mmol/L (3.6-5.0)
[2018-11-03] MEDS: INSULIN LISPRO 100 UNIT/ML 3 ML VIAL SUBCUT SCH ×4 (08:35→21:35)
[2018-11-03] MEDS: FUROSEMIDE INJ/PF 20 MG/2 ML SDV IV SCH (09:05)
[2018-11-03] MEDS: FERROUS SULFATE 325 MG TABLET PO SCH (09:05)
[2018-11-03] MEDS: FOLIC ACID 1 MG TABLET PO SCH (09:05)
[2018-11-03] MEDS: THIAMINE HCL 100 MG in NORMAL SALINE 50 ML IV SCH (10:16)
[2018-11-03] MEDS: ERTAPENEM SODIUM 0.5 GM in NORMAL SALINE 50 ML IV SCH (10:16)
[2018-11-03] MEDS: SITAGLIPTIN PHOSPHATE 25 MG TABLET PO SCH (10:17)
--- NOTE | 2018-11-03 15:47 | PDOC CONSULTATION ---
Consultation Consult Date: 11/03/18 Consult reason:: Acute kidney injury. History of Present Illness Admission Date/PCP: 10/27/18 19:58 DENISE MURRELL MD History of Present Illness: PANFILO BARBER is a 48 year old female with a history of diabetes mellitus, hypothyroidism and possible alcoholic liver cirrhosis was brought to the emergency room for evaluation of hypotension, elevated blood glucose. Apparently patient also had a history of long-standing diarrhea and abdominal pains. She says she quit alcohol a couple of months ago. Patient is a very poor historian and therefore chart review was done and discussions done with the treating nurse. Evaluations revealed that the patient was hypothermic, hypotensive and had severe hyperglycemia with a combination of gap and non-gap acidosis, severe anemia with a hemoglobin of 7 and had CHANEL with a creatinine of 4.2. Unsure of baseliune renal functions. Later on she also was found to have E. coli UTI. Patient was in a state of shock,Acute kidney injury, hyperglycemia and had severe anemia. She was fluid resuscitated, begun on bicarb drip, transfused and begun on antibiotics and admitted to the floor for further evaluations. She also gives a history of a few weeks of nonbloody diarrhea. She states that it happens after she eats. No history of any bloody stools. Serologies for C. difficile has been negative but I see that she is on ertapenem and Flagyl. She was seen by the surgeon but no surgical abdomen was found. CT scan showed possible distal colitis, cholelithiasis, some ascites, pleural effusions. Apparently she had a colonoscopy a few weeks ago by Dr. Avery gastroenterology. Labs and medications were reviewed. Admission labs showed BUN/creatinine 43/4.2, sodium 135, potassium 4.5, chloride of 115 and bicarb of 7 with a blood sugar of 643. Her lipase/amylase was 3416/574. Liver function test showed mildly elevated alkaline phosphatase of 141.Rest of her liver enzymes was normal but her albumin was low at 2.8. Her current creatinine is 3.2, bicarb is 32 potassium 4.5. Liver functions and pancreatic enzymes have now normalized. Past Medical History Endocrine Medical History: Reports: Diabetes Mellitus Type 1, Hypothyroidism GI Medical History: Reports: Cirrhosis Social History Lives with: Family Smoking Status: Former Smoker Cigarettes Packs Per Day: 0.5 Family History Parental Family History Reviewed: No Children Family History Reviewed: No Sibling(s) Family History Reviewed.: No Medication/Allergy Home Medications: Ferrous Sulfate [Feosol] 325 mg PO DAILY 10/27/18 Folic Acid [Folvite 1 mg Tablet] 1 mg PO DAILY 10/27/18 Furosemide [Lasix 40 mg Tablet] 40 mg PO DAILY 10/27/18 Insulin Lispro [Humalog Kwikpen] 5 unit SQ TID 10/27/18 Levothyroxine Sodium [Synthroid 0.088 mg Tablet] 0.088 mg PO Q6AM 10/27/18 Meloxicam [Mobic] 7.5 mg PO BIDP PRN 10/27/18 Montelukast Sodium [Singulair 10 mg Tablet] 10 mg PO QHS 10/27/18 Omeprazole 20 mg PO BID 10/27/18 Oxycodone HCl [Oxy-Ir 5 mg Tablet] 5 mg PO Q8HP PRN 10/27/18 Sitagliptin Phosphate [Januvia 25 mg Tablet] 25 mg PO DAILY 10/27/18 Spironolactone [Aldactone 25 mg Tablet] 25 mg PO DAILY 10/27/18 Allergies/Adverse Reactions: No Known Allergies Allergy (Unverified 10/27/18 18:55) Review of Systems ROS unobtainable: Due to mental status Constitutional: PRESENT: fatigue, weakness. ABSENT: anorexia, chills Nose, Mouth, and Throat: ABSENT: mouth pain, sore throat Cardiovascular: ABSENT: dyspnea on exertion, edema, orthropnea, palpitations Respiratory: ABSENT: dyspnea, hemoptysis Gastrointestinal: PRESENT: diarrhea. ABSENT: abdominal pain, bloating, coffee ground emesis, constipation, heartburn, hematemesis, hematochezia, nausea Genitourinary: ABSENT: difficulty urinating, dysuria, hematuria Musculoskeletal: ABSENT: deformity Integumentary: ABSENT: rash Neurological: ABSENT: abnormal speech, frequent falls Hematologic/Lymphatic: ABSENT: easy bleeding, easy bruising, lymphadenopathy Physical Exam Vital Signs: Temp Pulse Resp BP Pulse Ox 96.4 F L 74 14 124/85 95 11/03/18 08:05 11/03/18 08:07 11/03/18 08:07 11/03/18 08:07 11/03/18 08:07 Intake & Output 11/02/18 11/03/18 11/04/18 06:59 06:59 06:59 Intake Total 3286 2296 50 Output Total 1450 1525 Balance 1836 771 50 Weight 65.1 kg 69 kg General appearance: PRESENT: no acute distress Eye exam: PRESENT: conjunctiva pink, EOMI, PERRLA. ABSENT: scleral icterus Ear exam: PRESENT: normal external ear exam Mouth exam: PRESENT: neck supple Neck exam: ABSENT: lymphadenopathy, meningismus, tenderness, thyromegaly, tracheal deviation Respiratory exam: PRESENT: decreased breath sounds. ABSENT: clear to auscultation [place], crackles Cardiovascular exam: PRESENT: +S1, +S2 GI/Abdominal exam: PRESENT: normal bowel sounds, soft. ABSENT: organomegaly, tenderness Extremities exam: ABSENT: pedal edema Neurological exam: ABSENT: altered, oriented to person, oriented to place, oriented to time Skin exam: ABSENT: cyanosis, erythema, mottled, rash Results Laboratory Results: 11/02/18 07:52 11/03/18 05:35 11/03/18 05:35 Sodium 139.0 Potassium 3.6 Chloride 98 Carbon Dioxide 32 H Anion Gap 9 BUN 31 H Creatinine 3.22 H Est GFR ( Amer) 18 L Est GFR (Non-Af Amer) 15 L Glucose 97 Calcium 8.0 L 10/27/18 10/27/18 10/27/18 21:20 21:20 21:20 Creatine Kinase 77 CK-MB (CK-2) 3.26 Troponin I < 0.012 NT-Pro-B Natriuret Pep 55588 H 10/28/18 10/28/18 10/28/18 03:48 03:48 09:19 Creatine Kinase 77 75 CK-MB (CK-2) 3.38 Troponin I < 0.012 NT-Pro-B Natriuret Pep 10/28/18 09:19 Creatine Kinase CK-MB (CK-2) 3.32 Troponin I < 0.012 NT-Pro-B Natriuret Pep Impressions: Chest X-Ray 10/27/18 15:34 IMPRESSION: 1. No acute pulmonary consolidation. 2. Cardiomegaly. No evidence for failure. Abdomen/Pelvis CT 11/01/18 06:27 IMPRESSION: 1. Worsening pleural effusions and anasarca and ascites consistent with some worsening volume overload and/or third spacing. 2. Cholelithiasis. 3. Diffuse colonic wall thickening worse in the rectosigmoid colon consistent with a colitis, most likely an infectious colitis but please correlate clinically. Assessment & Plan - Diagnosis (1) Acute kidney injury Is this a current diagnosis for this admission?: Yes Plan: Patient is admission creatinine was 4.2 and now is down to 3.2. Obviously she is improving. She is nonoliguric. Unsure of baseline creatinine.CT scan did not show any obstructive features. Obviously her current insults are multifactorial including a combination of septic/hypovolemic shock, acute pancreatitis, possible early cholangitis, possible colitis and diabetic ketoacidosis.Looks like all of these features have been corrected and renal numbers are slowly improving. We will try to see Dr. Murrell has previous lab on her to understand what was her base renal numbers / status.Clinically she looks dry and I would continue with IV fluids with the thiamine as seen in the orders. (2) E. coli UTI Plan: Patient is on IV antibiotics. Follow-up with urine analysis. (3) Anemia Qualifiers: Anemia type: unspecified type Qualified Code(s): D64.9 - Anemia, unspecified Is this a current diagnosis for this admission?: Yes Plan: Obviously she came with acute anemia and she has been transfused. Get appropriate iron studies. Currently stable. Obviously if she has CKD one might have to consider starting her on erythropoietin down the road. (4) Diarrhea Qualifiers: Diarrhea type: unspecified type Qualified Code(s): R19.7 - Diarrhea, unspecified Is this a current diagnosis for this admission?: Yes Plan: Chronic. However, it would be beneficial to get a copy of the notes from Dr. Avery with whom she had a recent colonoscopy including the biopsy results to correlate with the CT scan finding of distal colitis. (6) Hypotension Qualifiers: Hypotension type: unspecified hypotension type Qualified Code(s): I95.9 - Hypotension, unspecified Plan: Multifactorial as mentioned earlier. Currently normotensive. (7) Metabolic acidosis Is this a current diagnosis for this admission?: Yes Plan: Currently resolved and now she is in the state of alkalosis.Etiology is a combination of gap and non-gap acidosis from her diarrhea/DKA. She was probably overcorrected with the IV bicarbonate infusions which has now been stopped. Monitor. (8) Acute pancreatitis Plan: She could have had gallstone pancreatitis or alcoholic pancreatitis. She had mildly abnormal liver functions obviously which is now resolved along with her pancreatic enzymes. This would need to be worked up as an outpatient and possibly she might benefit from a cholecystectomy.However she might need an ERCP prior to elective cholecystectomy.Chronic diarrhea could also be as a result of chronic pancreatitis and again this would be a GI issue to be sorted out especially if her colonoscopy and biopsy were negative for any colitis. (9) Cholelithiasis Plan: As per CT scan. This could again explain her reasons for acute pancreatitis. (10) Liver cirrhosis Plan: As per notes. Patient is very poor historian. Unsure of her alcohol intake at the moment even though serum alcohol was negative on toxicology lab testing on admission.
[2018-11-03] MEDS: DEXTROSE 5%-1/2 NORMAL SALINE 1,000 ML IV PRN (16:38)
--- NOTE | 2018-11-03 20:02 | PDOC PROGRESS REPORT ---
Subjective Progress Note for:: 11/03/18 Subjective:: Patient seen by the bedside, no new complaints other than diarrhea, Patient continues to have hypothermia requiring blanket Reason For Visit: ACUTE METABOLIC ACIDOSIS, HYPOTHERMIA TYPE I Physical Exam Vital Signs: Temp Pulse Resp BP Pulse Ox 96.4 F L 75 16 147/89 H 99 11/03/18 08:05 11/03/18 15:45 11/03/18 15:45 11/03/18 15:45 11/03/18 15:45 Intake & Output 11/02/18 11/03/18 11/04/18 06:59 06:59 06:59 Intake Total 3286 3296 656 Output Total 1450 1525 1000 Balance 1836 1771 -344 Weight 65.1 kg 69 kg 69 kg General appearance: PRESENT: no acute distress Eye exam: PRESENT: PERRLA Respiratory exam: PRESENT: clear to auscultation [place] Cardiovascular exam: PRESENT: +S1, +S2 GI/Abdominal exam: PRESENT: soft Neurological exam: PRESENT: alert Results Laboratory Results: 11/02/18 07:52 11/03/18 05:35 11/03/18 05:35 Sodium 139.0 Potassium 3.6 Chloride 98 Carbon Dioxide 32 H Anion Gap 9 BUN 31 H Creatinine 3.22 H Est GFR ( Amer) 18 L Est GFR (Non-Af Amer) 15 L Glucose 97 Calcium 8.0 L 10/27/18 10/27/18 10/27/18 21:20 21:20 21:20 Creatine Kinase 77 CK-MB (CK-2) 3.26 Troponin I < 0.012 NT-Pro-B Natriuret Pep 18953 H 10/28/18 10/28/18 10/28/18 03:48 03:48 09:19 Creatine Kinase 77 75 CK-MB (CK-2) 3.38 Troponin I < 0.012 NT-Pro-B Natriuret Pep 10/28/18 09:19 Creatine Kinase CK-MB (CK-2) 3.32 Troponin I < 0.012 NT-Pro-B Natriuret Pep Impressions: Chest X-Ray 10/27/18 15:34 IMPRESSION: 1. No acute pulmonary consolidation. 2. Cardiomegaly. No evidence for failure. Abdomen/Pelvis CT 11/01/18 06:27 IMPRESSION: 1. Worsening pleural effusions and anasarca and ascites consistent with some worsening volume overload and/or third spacing. 2. Cholelithiasis. 3. Diffuse colonic wall thickening worse in the rectosigmoid colon consistent with a colitis, most likely an infectious colitis but please correlate clinically. Assessment & Plan - Diagnosis (1) Normal anion gap metabolic acidosis Is this a current diagnosis for this admission?: Yes Plan: continue IV fluid (2) Hypotension Qualifiers: Hypotension type: other hypotension type Qualified Code(s): I95.89 - Other hypotension Is this a current diagnosis for this admission?: Yes (3) Acute kidney injury Is this a current diagnosis for this admission?: Yes (4) Hyperkalemia Is this a current diagnosis for this admission?: Yes (5) Septic shock Is this a current diagnosis for this admission?: Yes (6) Anemia Qualifiers: Anemia type: unspecified type Qualified Code(s): D64.9 - Anemia, unspecified Is this a current diagnosis for this admission?: Yes (7) Hypokalemia Is this a current diagnosis for this admission?: Yes (8) Diarrhea Qualifiers: Diarrhea type: unspecified type Qualified Code(s): R19.7 - Diarrhea, unspecified Is this a current diagnosis for this admission?: Yes
[2018-11-03] MEDS: TRAMADOL HCL 50 MG TABLET PO PRN (21:35)
[2018-11-03 23:25] LABS: APPEARANCE,URINE TURBID; BILIRUBIN,URINE NEGATIVE (NEGATIVE); COLOR,URINE YELLOW; GLUCOSE, URINE 150 mg/dL (NEGATIVE); KETONES,URINE NEGATIVE (NEGATIVE); LEUKOCYTE ESTERASE,URINE LARGE (NEGATIVE); NITRITE,URINE NEGATIVE (NEGATIVE); PROTEIN,URINE NEGATIVE (NEGATIVE); URINE SPECIFIC GRAVITY 1.008; UROBILINOGEN,URINE NEGATIVE mg/dL (<2.0)
[2018-11-04] MEDS: METRONIDAZOLE 500 MG/NS RTU 500 MG/100 ML RTUPB IV SCH ×3 (05:09→17:20)
[2018-11-04] MEDS: HEPARIN SOD (PORCINE) 5,000 UNIT/ML 1 ML SYRINGE SUBCUT SCH ×3 (05:09→21:35)
[2018-11-04] MEDS: LEVOTHYROXINE SODIUM 0.088 MG TABLET PO SCH (05:09)
[2018-11-04] MEDS: LOPERAMIDE HCL 2 MG CAPSULE PO PRN ×2 (05:09→09:37)
[2018-11-04 06:53] LABS: ABSOLUTE RETICS # 0.034 10^6/uL (0.028-0.122); RETICULOCYTE COUNT (AUTO) 1.24 % (0.66-2.85)
[2018-11-04 07:20] LABS: ANION GAP 8 (5-19); BLOOD UREA NITROGEN 32 mg/dL (7-20); CALCIUM 7.9 mg/dL (8.4-10.2); CARBON DIOXIDE 32 mmol/L (22-30); CHLORIDE 98 mmol/L (98-107); GLUCOSE 199 mg/dL (75-110); IRON(TIBC) 42.5 ug/dL (37-170); POTASSIUM 3.9 mmol/L (3.6-5.0); SODIUM 137.8 mmol/L (137-145)
[2018-11-04] MEDS: INSULIN LISPRO 100 UNIT/ML 3 ML VIAL SUBCUT SCH ×4 (08:30→21:38)
[2018-11-04] MEDS: THIAMINE HCL 100 MG in NORMAL SALINE 50 ML IV SCH (09:36)
[2018-11-04] MEDS: FUROSEMIDE INJ/PF 20 MG/2 ML SDV IV SCH (09:37)
[2018-11-04] MEDS: ERTAPENEM SODIUM 0.5 GM in NORMAL SALINE 50 ML IV SCH (09:37)
[2018-11-04] MEDS: FOLIC ACID 1 MG TABLET PO SCH (09:37)
[2018-11-04] MEDS: FERROUS SULFATE 325 MG TABLET PO SCH (09:37)
[2018-11-04] MEDS: SITAGLIPTIN PHOSPHATE 25 MG TABLET PO SCH (09:44)
[2018-11-04] MEDS: DEXTROSE 5%-1/2 NORMAL SALINE 1,000 ML IV PRN (09:45)
[2018-11-04] MEDS: TRAMADOL HCL 50 MG TABLET PO PRN (09:48)
--- NOTE | 2018-11-04 20:05 | PDOC PROGRESS REPORT ---
Subjective Progress Note for:: 11/04/18 Subjective:: Patient seen by the bedside, she continues to show improvement clinically Reason For Visit: ACUTE METABOLIC ACIDOSIS, HYPOTHERMIA TYPE I Physical Exam Vital Signs: Temp Pulse Resp BP Pulse Ox 97.3 F 76 14 147/87 H 98 11/04/18 16:46 11/04/18 16:46 11/04/18 16:46 11/04/18 16:46 11/04/18 16:46 Intake & Output 11/03/18 11/04/18 11/05/18 06:59 06:59 06:59 Intake Total 3296 2096 1355 Output Total 1525 1875 400 Balance 1771 221 955 Weight 69 kg 67.4 kg General appearance: PRESENT: no acute distress Eye exam: PRESENT: PERRLA Respiratory exam: PRESENT: clear to auscultation [place] Cardiovascular exam: PRESENT: +S1, +S2 GI/Abdominal exam: PRESENT: soft Neurological exam: PRESENT: alert Results Laboratory Results: 11/02/18 07:52 11/04/18 05:03 11/03/18 11/04/18 11/04/18 23:07 05:03 05:03 Retic Count (auto) 1.24 Absolute Retic 0.034 Sodium 137.8 Potassium 3.9 Chloride 98 Carbon Dioxide 32 H Anion Gap 8 BUN 32 H Creatinine 3.11 H Est GFR ( Amer) 19 L Est GFR (Non-Af Amer) 16 L Glucose 199 H Calcium 7.9 L Iron 42.5 TIBC 205 L % Saturation 21 Ferritin 243.00 Vitamin B12 845.0 Folate 17.50 Urine Color YELLOW Urine Appearance TURBID Urine pH 6.0 Ur Specific [place] 1.008 Urine Protein NEGATIVE Urine Glucose (UA) 150 H Urine Ketones NEGATIVE Urine Blood MODERATE H Urine Nitrite NEGATIVE Ur Leukocyte Esterase LARGE H Urine WBC (Auto) >182 Urine RBC (Auto) 106 10/27/18 10/27/18 10/27/18 21:20 21:20 21:20 Creatine Kinase 77 CK-MB (CK-2) 3.26 Troponin I < 0.012 NT-Pro-B Natriuret Pep 30946 H 10/28/18 10/28/18 10/28/18 03:48 03:48 09:19 Creatine Kinase 77 75 CK-MB (CK-2) 3.38 Troponin I < 0.012 NT-Pro-B Natriuret Pep 04/30/19 09:19 Creatine Kinase CK-MB (CK-2) 3.32 Troponin I < 0.012 NT-Pro-B Natriuret Pep Impressions: Chest X-Ray 10/27/18 15:34 IMPRESSION: 1. No acute pulmonary consolidation. 2. Cardiomegaly. No evidence for failure. Abdomen/Pelvis CT 11/01/18 06:27 IMPRESSION: 1. Worsening pleural effusions and anasarca and ascites consistent with some worsening volume overload and/or third spacing. 2. Cholelithiasis. 3. Diffuse colonic wall thickening worse in the rectosigmoid colon consistent with a colitis, most likely an infectious colitis but please correlate clinically. Assessment & Plan - Diagnosis (1) Normal anion gap metabolic acidosis Is this a current diagnosis for this admission?: Yes (2) Hypotension Qualifiers: Hypotension type: other hypotension type Qualified Code(s): I95.89 - Other hypotension Is this a current diagnosis for this admission?: Yes (3) Acute kidney injury Is this a current diagnosis for this admission?: Yes (4) Hyperkalemia Is this a current diagnosis for this admission?: Yes (5) Septic shock Is this a current diagnosis for this admission?: Yes (6) Anemia Qualifiers: Anemia type: unspecified type Qualified Code(s): D64.9 - Anemia, unspecified Is this a current diagnosis for this admission?: Yes (7) Hypokalemia Is this a current diagnosis for this admission?: Yes (8) Diarrhea Qualifiers: Diarrhea type: unspecified type Qualified Code(s): R19.7 - Diarrhea, unspecified Is this a current diagnosis for this admission?: Yes - Plan Summary Plan Summary: Continue present management
[2018-11-04 21:52] LABS: ABSOLUTE BASOPHILS # (AUTO) 0.1 10^3/uL (0.0-0.2); ABSOLUTE EOSINOPHILS # (AUTO) 0.1 10^3/uL (0.0-0.6); ABSOLUTE LYMPHOCYTES (AUTO) 1.5 10^3/uL (0.5-4.7); ABSOLUTE MONOCYTES (AUTO) 0.5 10^3/uL (0.1-1.4); ABSOLUTE NEUT (AUTO) 4.7 10^3/uL (1.7-8.2); EOSINOPHILS % (AUTO) 1.3 % (0-6); HEMATOCRIT 27.6 % (36.0-47.0); LYMPHOCYTES % (AUTO) 21.8 % (13-45); MEAN CORPUSCULAR HEMOGLOBIN 30.5 pg (27.0-33.4); MEAN CORPUSCULAR HGB CONC 32.4 g/dL (32.0-36.0); MEAN CORPUSCULAR VOLUME 94 fl (80-97); MONOCYTES % (AUTO) 6.7 % (3-13); PLATELET COUNT 114 10^3/uL (150-450); RED BLOOD COUNT 2.94 10^6/uL (3.72-5.28); RED CELL DISTRIBUTION WIDTH 18.9 % (11.5-14.0); SEGMENTED NEUTROPHILS % (AUTO) 69.2 % (42-78); TOTAL CELLS COUNTED % (AUTO) 100 %; WHITE BLOOD COUNT 6.9 10^3/uL (4.0-10.5)
[2018-11-05] MEDS: METRONIDAZOLE 500 MG/NS RTU 500 MG/100 ML RTUPB IV SCH ×3 (00:39→11:52)
[2018-11-05] MEDS: DEXTROSE 5%-1/2 NORMAL SALINE 1,000 ML IV PRN ×2 (03:45→16:53)
[2018-11-05] MEDS: TRAMADOL HCL 50 MG TABLET PO PRN (03:46)
[2018-11-05] MEDS: HEPARIN SOD (PORCINE) 5,000 UNIT/ML 1 ML SYRINGE SUBCUT SCH ×3 (05:14→21:41)
[2018-11-05] MEDS: LEVOTHYROXINE SODIUM 0.088 MG TABLET PO SCH (05:16)
[2018-11-05] MEDS: INSULIN LISPRO 100 UNIT/ML 3 ML VIAL SUBCUT SCH ×4 (08:07→21:45)
[2018-11-05 08:56] LABS: ABSOLUTE BASOPHILS # (AUTO) 0.1 10^3/uL (0.0-0.2); ABSOLUTE EOSINOPHILS # (AUTO) 0.1 10^3/uL (0.0-0.6); ABSOLUTE LYMPHOCYTES (AUTO) 1.3 10^3/uL (0.5-4.7); ABSOLUTE MONOCYTES (AUTO) 0.5 10^3/uL (0.1-1.4); ABSOLUTE NEUT (AUTO) 4.3 10^3/uL (1.7-8.2); BASOPHILS % (AUTO) 0.8 % (0-2); EOSINOPHILS % (AUTO) 0.9 % (0-6); HEMATOCRIT 25.7 % (36.0-47.0); HEMOGLOBIN 8.6 g/dL (12.0-15.5); LYMPHOCYTES % (AUTO) 21.2 % (13-45); MEAN CORPUSCULAR HEMOGLOBIN 31.1 pg (27.0-33.4); MEAN CORPUSCULAR HGB CONC 33.5 g/dL (32.0-36.0); MEAN CORPUSCULAR VOLUME 93 fl (80-97); MONOCYTES % (AUTO) 7.4 % (3-13); PLATELET COUNT 107 10^3/uL (150-450); RED BLOOD COUNT 2.77 10^6/uL (3.72-5.28); RED CELL DISTRIBUTION WIDTH 18.7 % (11.5-14.0); SEGMENTED NEUTROPHILS % (AUTO) 69.7 % (42-78); TOTAL CELLS COUNTED % (AUTO) 100 %; WHITE BLOOD COUNT 6.2 10^3/uL (4.0-10.5)
[2018-11-05] MEDS: THIAMINE HCL 100 MG in NORMAL SALINE 50 ML IV SCH (10:44)
[2018-11-05] MEDS: FOLIC ACID 1 MG TABLET PO SCH (10:44)
[2018-11-05] MEDS: FERROUS SULFATE 325 MG TABLET PO SCH (10:44)
[2018-11-05] MEDS: FUROSEMIDE INJ/PF 20 MG/2 ML SDV IV SCH (10:44)
[2018-11-05] MEDS: SITAGLIPTIN PHOSPHATE 25 MG TABLET PO SCH (10:46)
[2018-11-05 14:13] LABS: ALANINE AMINOTRANSFERASE 15 U/L (9-52); ALBUMIN 2.3 g/dL (3.5-5.0); ALKALINE PHOSPHATASE 156 U/L (38-126); ANION GAP 10 (5-19); ASPARTATE AMINO TRANSFERASE 32 U/L (14-36); BILIRUBIN,DIRECT 0.4 mg/dL (0.0-0.4); BILIRUBIN,TOTAL 0.4 mg/dL (0.2-1.3); BLOOD UREA NITROGEN 29 mg/dL (7-20); CARBON DIOXIDE 30 mmol/L (22-30); CHLORIDE 97 mmol/L (98-107); GLUCOSE 147 mg/dL (75-110); POTASSIUM 3.5 mmol/L (3.6-5.0); SODIUM 136.6 mmol/L (137-145); TOTAL PROTEIN 5.8 g/dL (6.3-8.2)
--- NOTE | 2018-11-05 14:43 | PDOC PROGRESS REPORT ---
Subjective Progress Note for:: 11/05/18 Reason For Visit: Hospital. She is sitting on a recliner. Denies any specific complaints. Still anorexic. No complaints of any chest pain shortness of breath. Labs and medications were reviewed. Fortunately we still did not have old chemistry to see what is the baseline function from 6 months ago.Reviewed notes from recent admission and discharge from [facility] where she was admitted for enterococcus septic shock. Physical Exam Vital Signs: Temp Pulse Resp BP Pulse Ox 97.7 F 77 18 128/83 H 94 11/05/18 11:06 11/05/18 11:06 11/05/18 11:06 11/05/18 11:06 11/05/18 11:06 Intake & Output 11/04/18 11/05/18 11/06/18 06:59 06:59 06:59 Intake Total 2096 2990 387 Output Total 1875 1557 650 Balance 221 1433 -263 Weight 67.4 kg 67 kg General appearance: PRESENT: no acute distress Respiratory exam: PRESENT: clear to auscultation [place]. ABSENT: crackles Cardiovascular exam: PRESENT: +S1, +S2 GI/Abdominal exam: PRESENT: normal bowel sounds, soft. ABSENT: organomegaly, tenderness Extremities exam: ABSENT: pedal edema Neurological exam: PRESENT: alert, awake, oriented to person, oriented to place Psychiatric exam: PRESENT: appropriate affect Skin exam: ABSENT: erythema, mottled, rash Results Laboratory Results: 11/05/18 08:11 11/05/18 08:11 11/04/18 11/05/18 11/05/18 21:30 08:11 08:11 WBC 6.9 6.2 RBC 2.94 L 2.77 L Hgb 9.0 L 8.6 L Hct 27.6 L 25.7 L MCV 94 93 MCH 30.5 31.1 MCHC 32.4 33.5 RDW 18.9 H 18.7 H Plt Count 114 L 107 L Seg Neutrophils % 69.2 69.7 Lymphocytes % 21.8 21.2 Monocytes % 6.7 7.4 Eosinophils % 1.3 0.9 Basophils % 1.0 0.8 Absolute Neutrophils 4.7 4.3 Absolute Lymphocytes 1.5 1.3 Absolute Monocytes 0.5 0.5 Absolute Eosinophils 0.1 0.1 Absolute Basophils 0.1 0.1 Sodium 136.6 L Potassium 3.5 L Chloride 97 L Carbon Dioxide 30 Anion Gap 10 BUN 29 H Creatinine 3.03 H Est GFR ( Amer) 20 L Est GFR (Non-Af Amer) 16 L Glucose 147 H Calcium 8.0 L Total Bilirubin 0.4 AST 32 ALT 15 Alkaline Phosphatase 156 H Total Protein 5.8 L Albumin 2.3 L 11/01/18 23:45 Stool - Stool - Final 11/01/18 23:45 Stool - Stool Stool Culture - Final C.albicans/C.dubliniensis 10/27/18 10/27/18 10/27/18 21:20 21:20 21:20 Creatine Kinase 77 CK-MB (CK-2) 3.26 Troponin I < 0.012 NT-Pro-B Natriuret Pep 93440 H 10/28/18 10/28/18 10/28/18 03:48 03:48 09:19 Creatine Kinase 77 75 CK-MB (CK-2) 3.38 Troponin I < 0.012 NT-Pro-B Natriuret Pep 10/28/18 09:19 Creatine Kinase CK-MB (CK-2) 3.32 Troponin I < 0.012 NT-Pro-B Natriuret Pep Impressions: Chest X-Ray 10/27/18 15:34 IMPRESSION: 1. No acute pulmonary consolidation. 2. Cardiomegaly. No evidence for failure. Abdomen/Pelvis CT 11/01/18 06:27 IMPRESSION: 1. Worsening pleural effusions and anasarca and ascites consistent with some worsening volume overload and/or third spacing. 2. Cholelithiasis. 3. Diffuse colonic wall thickening worse in the rectosigmoid colon consistent with a colitis, most likely an infectious colitis but please correlate clinically. Assessment & Plan - Diagnosis (1) Acute kidney injury Is this a current diagnosis for this admission?: Yes Plan: Currently her creatinine is stable. It is obviously improved from admission. However we need to get old labs from 6 months ago or so to realize what is her baseline renal functions. Discussed with the nurse to get a copy of all labs from Dr. Lucero's office. Otherwise continue on current lines of treatment. No acute indications for renal replacements exists at the moment. (2) Anemia Qualifiers: Anemia type: unspecified type Qualified Code(s): D64.9 - Anemia, unspecified Is this a current diagnosis for this admission?: Yes Plan: Chronic renal disease. Iron indicis are adequate. Will start erythropoietin. (3) Diarrhea Qualifiers: Diarrhea type: unspecified type Qualified Code(s): R19.7 - Diarrhea, unspecified Is this a current diagnosis for this admission?: Yes Plan: Improving. As per Dr. Lucero. (4) Hyperglycemia due to type 1 diabetes mellitus Plan: Advised the need for tight sugar control. (5) Hypotension Qualifiers: Hypotension type: unspecified hypotension type Qualified Code(s): I95.9 - H ypotension, unspecified Plan: Resolved. (6) Metabolic acidosis Is this a current diagnosis for this admission?: Yes Plan: Resolved. (7) Acute pancreatitis Plan: Currently resolved. As mentioned earlier in my consult note she would probably need further evaluation as an outpatient especially given the fact she has gallstones. (8) Cholelithiasis Plan: Status quo. (9) Liver cirrhosis Plan: Status quo. No current evidences of decompensation.Unsure if she has portal hypertension. Needs GI evaluations if not done earlier.
--- NOTE | 2018-11-05 17:55 | PDOC PROGRESS REPORT ---
Subjective Progress Note for:: 11/05/18 Subjective:: Patient was seen by the bedside, she has severe anasarca this is most likely from the severe hypoalbuminemia. The diarrhea has subsided on lomotil,. The serum creatinine is 3, she was seen by assistant teaching professor earlier today Reason For Visit: ACUTE METABOLIC ACIDOSIS, HYPOTHERMIA TYPE I Physical Exam Vital Signs: Temp Pulse Resp BP Pulse Ox 97.7 F 78 18 128/83 H 94 11/05/18 11:06 11/05/18 14:00 11/05/18 11:06 11/05/18 11:06 11/05/18 11:06 Intake & Output 11/04/18 11/05/18 11/06/18 06:59 06:59 06:59 Intake Total 2096 2990 1372 Output Total 1875 1557 650 Balance 221 1433 722 Weight 67.4 kg 67 kg General appearance: PRESENT: mild distress Eye exam: PRESENT: PERRLA Respiratory exam: PRESENT: clear to auscultation [place] Cardiovascular exam: PRESENT: +S1, +S2 GI/Abdominal exam: PRESENT: soft Extremities exam: PRESENT: pedal edema Neurological exam: PRESENT: alert, CN II-XII grossly intact Results Laboratory Results: 11/05/18 08:11 11/05/18 08:11 11/04/18 11/05/18 11/05/18 21:30 08:11 08:11 WBC 6.9 6.2 RBC 2.94 L 2.77 L Hgb 9.0 L 8.6 L Hct 27.6 L 25.7 L MCV 94 93 MCH 30.5 31.1 MCHC 32.4 33.5 RDW 18.9 H 18.7 H Plt Count 114 L 107 L Seg Neutrophils % 69.2 69.7 Lymphocytes % 21.8 21.2 Monocytes % 6.7 7.4 Eosinophils % 1.3 0.9 Basophils % 1.0 0.8 Absolute Neutrophils 4.7 4.3 Absolute Lymphocytes 1.5 1.3 Absolute Monocytes 0.5 0.5 Absolute Eosinophils 0.1 0.1 Absolute Basophils 0.1 0.1 Sodium 136.6 L Potassium 3.5 L Chloride 97 L Carbon Dioxide 30 Anion Gap 10 BUN 29 H Creatinine 3.03 H Est GFR ( Amer) 20 L Est GFR (Non-Af Amer) 16 L Glucose 147 H Calcium 8.0 L Total Bilirubin 0.4 AST 32 ALT 15 Alkaline Phosphatase 156 H Total Protein 5.8 L Albumin 2.3 L 11/01/18 23:45 Stool - Stool - Final 11/01/18 23:45 Stool - Stool Stool Culture - Final C.albicans/C.dubliniensis 10/27/18 10/27/18 10/27/18 21:20 21:20 21:20 Creatine Kinase 77 CK-MB (CK-2) 3.26 Troponin I < 0.012 NT-Pro-B Natriuret Pep 74556 H 10/28/18 10/28/18 10/28/18 03:48 03:48 09:19 Creatine Kinase 77 75 CK-MB (CK-2) 3.38 Troponin I < 0.012 NT-Pro-B Natriuret Pep 10/28/18 09:19 Creatine Kinase CK-MB (CK-2) 3.32 Troponin I < 0.012 NT-Pro-B Natriuret Pep Impressions: Chest X-Ray 10/27/18 15:34 IMPRESSION: 1. No acute pulmonary consolidation. 2. Cardiomegaly. No evidence for failure. Abdomen/Pelvis CT 11/01/18 06:27 IMPRESSION: 1. Worsening pleural effusions and anasarca and ascites consistent with some worsening volume overload and/or third spacing. 2. Cholelithiasis. 3. Diffuse colonic wall thickening worse in the rectosigmoid colon consistent with a colitis, most likely an infectious colitis but please correlate clinically. Assessment & Plan - Diagnosis (1) Normal anion gap metabolic acidosis Is this a current diagnosis for this admission?: Yes (2) Hypotension Qualifiers: Hypotension type: other hypotension type Qualified Code(s): I95.89 - Other hypotension Is this a current diagnosis for this admission?: Yes (3) Acute kidney injury Is this a current diagnosis for this admission?: Yes (4) Hyperkalemia Is this a current diagnosis for this admission?: Yes (5) Septic shock Is this a current diagnosis for this admission?: Yes (6) Anemia Qualifiers: Anemia type: unspecified type Qualified Code(s): D64.9 - Anemia, unspecified Is this a current diagnosis for this admission?: Yes (7) Hypokalemia Is this a current diagnosis for this admission?: Yes (8) Diarrhea Qualifiers: Diarrhea type: unspecified type Qualified Code(s): R19.7 - Diarrhea, unspecified Is this a current diagnosis for this admission?: Yes Plan: The diarrhea has subsided on lomotil (9) Anasarca Is this a current diagnosis for this admission?: Yes Plan: DC 5% dextrose (10) Hypothermia Qualifiers: Encounter type: subsequent encounter Qualified Code(s): T68.XXXD - Hypothermia, subsequent encounter Is this a current diagnosis for this admission?: Yes
[2018-11-05] MEDS: PANTOPRAZOLE SODIUM 20 MG TABLET.DR PO SCH (19:17)
[2018-11-06] MEDS: HEPARIN SOD (PORCINE) 5,000 UNIT/ML 1 ML SYRINGE SUBCUT SCH ×3 (05:12→23:00)
[2018-11-06] MEDS: LEVOTHYROXINE SODIUM 0.088 MG TABLET PO SCH (05:58)
[2018-11-06] MEDS: INSULIN LISPRO 100 UNIT/ML 3 ML VIAL SUBCUT SCH ×4 (07:51→23:00)
[2018-11-06] MEDS: PANTOPRAZOLE SODIUM 20 MG TABLET.DR PO SCH ×2 (08:26→17:05)
[2018-11-06] MEDS: FUROSEMIDE INJ/PF 20 MG/2 ML SDV IV SCH (11:26)
[2018-11-06] MEDS: SITAGLIPTIN PHOSPHATE 25 MG TABLET PO SCH (11:27)
[2018-11-06] MEDS: FERROUS SULFATE 325 MG TABLET PO SCH (11:27)
[2018-11-06] MEDS: SPIRONOLACTONE 25 MG TABLET PO SCH (11:27)
[2018-11-06] MEDS: THIAMINE HCL 100 MG in NORMAL SALINE 50 ML IV SCH (11:27)
[2018-11-06] MEDS: FOLIC ACID 1 MG TABLET PO SCH (11:28)
[2018-11-06] MEDS ORDERED: EPOETIN ALFA INJ 20000 UNIT/1 ML VIAL (RENAL) SUBCUT SCH (15:00)
[2018-11-06 15:37] LABS: A/G RATIO. 0.8 (0.7-1.7); ALBUMIN 3 2.4 g/dL (2.9-4.4); ALPHA-1-GLOBULIN 0.3 g/dL (0.0-0.4); BETA GLOBULIN 0.8 g/dL (0.7-1.3); GAMMA GLOBULINS 1.9 g/dL (0.4-1.8); IMMUNOGLOBULIN A 303 mg/dL (87-352); IMMUNOGLOBULIN G 1919 mg/dL (700-1600); IMMUNOGLOBULIN M 91 mg/dL (26-217); MONOCLONAL-SPIKE Not Observed g/dL (Not Observ); PROTEIN TOTAL SERUM 5.7 g/dL (6.0-8.5)
[2018-11-06 18:37] LABS: ABSOLUTE BASOPHILS # (AUTO) 0.1 10^3/uL (0.0-0.2); ABSOLUTE EOSINOPHILS # (AUTO) 0.1 10^3/uL (0.0-0.6); ABSOLUTE LYMPHOCYTES (AUTO) 1.2 10^3/uL (0.5-4.7); ABSOLUTE MONOCYTES (AUTO) 0.4 10^3/uL (0.1-1.4); ABSOLUTE NEUT (AUTO) 4.5 10^3/uL (1.7-8.2); EOSINOPHILS % (AUTO) 0.8 % (0-6); HEMATOCRIT 27.8 % (36.0-47.0); LYMPHOCYTES % (AUTO) 19.2 % (13-45); MEAN CORPUSCULAR HEMOGLOBIN 30.8 pg (27.0-33.4); MEAN CORPUSCULAR HGB CONC 32.6 g/dL (32.0-36.0); MEAN CORPUSCULAR VOLUME 95 fl (80-97); MONOCYTES % (AUTO) 5.8 % (3-13); PLATELET COUNT 123 10^3/uL (150-450); RED BLOOD COUNT 2.94 10^6/uL (3.72-5.28); RED CELL DISTRIBUTION WIDTH 19.1 % (11.5-14.0); SEGMENTED NEUTROPHILS % (AUTO) 73.2 % (42-78); TOTAL CELLS COUNTED % (AUTO) 100 %; WHITE BLOOD COUNT 6.2 10^3/uL (4.0-10.5)
--- NOTE | 2018-11-06 19:48 | PDOC DISCHARGE SUMMARY ---
General - Admit/Disc Date/PCP Admission Date/Primary Care Provider: 10/27/18 19:58 DENISE MURRELL MD Discharge Date: 11/06/18 - Discharge Diagnosis (1) Normal anion gap metabolic acidosis Is this a current diagnosis for this admission?: Yes (2) Hypotension Is this a current diagnosis for this admission?: Yes (3) Acute kidney injury Is this a current diagnosis for this admission?: Yes (4) Hyperkalemia Is this a current diagnosis for this admission?: Yes (5) Septic shock Is this a current diagnosis for this admission?: Yes (6) Anemia Is this a current diagnosis for this admission?: Yes (7) Hypokalemia Is this a current diagnosis for this admission?: Yes (8) Diarrhea Is this a current diagnosis for this admission?: Yes (9) Anasarca Is this a current diagnosis for this admission?: Yes (10) Hypothermia Is this a current diagnosis for this admission?: Yes - Additional Information Home Medications: Ferrous Sulfate [Feosol] 325 mg PO DAILY 10/27/18 Folic Acid [Folvite 1 mg Tablet] 1 mg PO DAILY 10/27/18 Furosemide [Lasix 40 mg Tablet] 40 mg PO DAILY 10/27/18 Insulin Lispro [Humalog Kwikpen U-100] 5 unit SQ TID 10/27/18 Levothyroxine Sodium [Synthroid 0.088 mg Tablet] 0.088 mg PO Q6AM 10/27/18 Montelukast Sodium [Singulair 10 mg Tablet] 10 mg PO QHS 10/27/18 Omeprazole 20 mg PO BID 10/27/18 Spironolactone [Aldactone 25 mg Tablet] 25 mg PO DAILY 10/27/18 Insulin Lispro [Humalog Insulin (Lispro) 100 unit/mL] 0 - 12 unit SUBCUT ACHS unit 11/06/18 History of Present Illness History of Present Illness: PANFILO BARBER is a 48 year old female, Patient was brought to the emergency room for evaluation of hypotension, elevated blood glucose, there was severe normal anion gap metabolic acidosis,Acute kidney injury, hyperglycemia,There was severe anemia with hemoglobin of 7,Resuscitation was initiated in the emergency room with blood transfusion, she was also severely hypothermic.Patient condition is critical, BUN is 43 creatinine is 4.29.History difficult to obtain in this patient because she is very lethargic.She was transferred from home to the emergency room for evaluation for possible high blood sugar, she also stated that she had multiple weeks of nonbloody diarrhea there is no fever chills nausea vomiting no shortness of breath.When EMS arrived at patient's residence, she was found to be hypotensive she was also extremely hypothermic she required bear hugger and also warm IV fluids were infused Hospital Course Hospital Course: She has underlining alcohol-related liver cirrhosis, she was admitted with sepsis, There was severe metabolic acidosis,Hypokalemia partly from diffuse diarrhea.She has diffuse, protracted diarrhea ,there was severe hypothymia req uiring warm blanket.She required bear hugger because of the hypothermia for a very prolonged period of time, the hypothymia is felt to be due to metabolic derangement including metabolic acidosis and sepsis, infection there was severe hypotension due to volume loss from protracted diarrhea. The stool study was negative for C. difficile toxin no pathology was cultured from the stool ultimately anti-diarrhea agent Lomotil was used to control the diarrhea.There was associated acute kidney injury most likely prerenal from the profuse diarrhea Physical Exam Vital Signs: Temp Pulse Resp BP Pulse Ox 97.3 F 80 16 116/81 97 11/06/18 15:15 11/06/18 15:15 11/06/18 15:15 11/06/18 15:15 11/06/18 15:15 Intake & Output 11/05/18 11/06/18 11/07/18 06:59 06:59 06:59 Intake Total 2990 1673 288 Output Total 1557 1300 700 Balance 1433 373 -412 Weight 67 kg 67.3 kg General appearance: PRESENT: no acute distress Eye exam: PRESENT: PERRLA Respiratory exam: PRESENT: clear to auscultation [place] Cardiovascular exam: PRESENT: +S1, +S2 GI/Abdominal exam: PRESENT: soft Neurological exam: PRESENT: alert, CN II-XII grossly intact Results Laboratory Results: 11/06/18 18:09 11/06/18 18:09 11/06/18 11/06/18 18:09 18:09 WBC 6.2 RBC 2.94 L Hgb 9.0 L Hct 27.8 L MCV 95 MCH 30.8 MCHC 32.6 RDW 19.1 H Plt Count 123 L Seg Neutrophils % 73.2 Lymphocytes % 19.2 Monocytes % 5.8 Eosinophils % 0.8 Basophils % 1.0 Absolute Neutrophils 4.5 Absolute Lymphocytes 1.2 Absolute Monocytes 0.4 Absolute Eosinophils 0.1 Absolute Basophils 0.1 Sodium Cancelled Potassium Cancelled Chloride Cancelled Carbon Dioxide Cancelled Anion Gap Cancelled BUN Cancelled Creatinine Cancelled Est GFR ( Amer) Cancelled Est GFR (Non-Af Amer) Cancelled Glucose Cancelled Calcium Cancelled Total Bilirubin Cancelled AST Cancelled ALT Cancelled Alkaline Phosphatase Cancelled Total Protein Cancelled Albumin Cancelled 10/27/18 10/27/18 10/27/18 21:20 21:20 21:20 Creatine Kinase 77 CK-MB (CK-2) 3.26 Troponin I < 0.012 NT-Pro-B Natriuret Pep 56652 H 10/28/18 10/28/18 10/28/18 03:48 03:48 09:19 Creatine Kinase 77 75 CK-MB (CK-2) 3.38 Troponin I < 0.012 NT-Pro-B Natriuret Pep 10/28/18 09:19 Creatine Kinase CK-MB (CK-2) 3.32 Troponin I < 0.012 NT-Pro-B Natriuret Pep Impressions: Chest X-Ray 10/27/18 15:34 IMPRESSION: 1. No acute pulmonary consolidation. 2. Cardiomegaly. No evidence for failure. Abdomen/Pelvis CT 11/01/18 06:27 IMPRESSION: 1. Worsening pleural effusions and anasarca and ascites consistent with some worsening volume overload and/or third spacing. 2. Cholelithiasis. 3. Diffuse colonic wall thickening worse in the rectosigmoid colon consistent with a colitis, most likely an infectious colitis but please correlate clinically. Qualifiers - * PATIENT BEING DISCHARGED WITH ANY OF THE FOLLOWING DIAGNOSIS: No VTE patient discharged on overlapping Therapy?: Yes Acute Heart Failure Is this a Heart Failure Patient?: No
[2018-11-06 20:20] LABS: ALANINE AMINOTRANSFERASE 26 U/L (9-52); ALBUMIN 2.7 g/dL (3.5-5.0); ALKALINE PHOSPHATASE 265 U/L (38-126); ANION GAP 9 (5-19); ASPARTATE AMINO TRANSFERASE 70 U/L (14-36); BILIRUBIN,DIRECT 0.6 mg/dL (0.0-0.4); BILIRUBIN,TOTAL 0.6 mg/dL (0.2-1.3); BLOOD UREA NITROGEN 31 mg/dL (7-20); CALCIUM 8.2 mg/dL (8.4-10.2); CARBON DIOXIDE 31 mmol/L (22-30); CHLORIDE 97 mmol/L (98-107); GLUCOSE 99 mg/dL (75-110); SODIUM 137.2 mmol/L (137-145); TOTAL PROTEIN 6.4 g/dL (6.3-8.2)
[2018-11-07] MEDS: LEVOTHYROXINE SODIUM 0.088 MG TABLET PO SCH (05:23)
[2018-11-07] MEDS: HEPARIN SOD (PORCINE) 5,000 UNIT/ML 1 ML SYRINGE SUBCUT SCH (05:40)
[2018-11-07] MEDS: PANTOPRAZOLE SODIUM 20 MG TABLET.DR PO SCH (09:00)
[2018-11-07] MEDS: INSULIN LISPRO 100 UNIT/ML 3 ML VIAL SUBCUT SCH ×2 (09:00→11:20)
[2018-11-07] MEDS: SPIRONOLACTONE 25 MG TABLET PO SCH (10:39)
[2018-11-07] MEDS: FERROUS SULFATE 325 MG TABLET PO SCH (10:39)
[2018-11-07] MEDS: FOLIC ACID 1 MG TABLET PO SCH (10:39)
[2018-11-07] MEDS: THIAMINE HCL 100 MG in NORMAL SALINE 50 ML IV SCH ×2 (10:40→10:44)
[2018-11-07] MEDS: FUROSEMIDE INJ/PF 20 MG/2 ML SDV IV SCH ×2 (10:40→10:44)
[2018-11-07] MEDS: SITAGLIPTIN PHOSPHATE 25 MG TABLET PO SCH (10:40)
[2018-11-07 12:29] VITALS: BP 135/88
== END 2018-11-07 12:35 | disposition home or self-care (01) | DRG 871 ==
LOC: ER 14:56 → EH 19:58 → 3N 22:05
PROVIDERS: ADMIT Internal Medicine; ATTEND Internal Medicine
PROC: 30233N1 Transfusion of Nonautologous Red Blood Cells into Peripheral Vein, Percutaneous Approach (ICD-10-PCS; principal; 2018-10-28)
DX: A41.9 Sepsis, unspecified organism (principal); E10.10 Type 1 diabetes mellitus with ketoacidosis without coma; R65.21 Severe sepsis with septic shock; R57.1 Hypovolemic shock; K85.20 Alcohol induced acute pancreatitis without necrosis or infection; N17.9 Acute kidney failure, unspecified; N39.0 Urinary tract infection, site not specified; E87.2 Acidosis; T68.XXXA Hypothermia, initial encounter; E10.42 Type 1 diabetes mellitus with diabetic polyneuropathy; I12.9 Hypertensive chronic kidney disease with stage 1 through stage 4 chronic kidney disease, or unspecified chronic kidney disease; E10.22 Type 1 diabetes mellitus with diabetic chronic kidney disease; R19.7 Diarrhea, unspecified; B96.20 Unspecified Escherichia coli [E. coli] as the cause of diseases classified elsewhere; K80.20 Calculus of gallbladder without cholecystitis without obstruction; N18.3 Chronic kidney disease, stage 3 (moderate); D63.8 Anemia in other chronic diseases classified elsewhere; E03.9 Hypothyroidism, unspecified; E88.09 Other disorders of plasma-protein metabolism, not elsewhere classified; E87.6 Hypokalemia; K70.30 Alcoholic cirrhosis of liver without ascites; K70.10 Alcoholic hepatitis without ascites; F10.20 Alcohol dependence, uncomplicated; Y90.0 Blood alcohol level of less than 20 mg/100 ml; Z79.4 Long term (current) use of insulin; Z79.899 Other long term (current) drug therapy
CPT/HCPCS: 36415; 36430; 36600; 51702; 71045; 74176; 80048; 80053; 80061; 80076; 80307; 81001; 82140; 82150; 82272; 82550; 82553; 82607; 82728; 82746; 82803; 82962; 83036; 83540; 83550; 83605; 83690; 83735; 83880; 84100; 84439; 84443; 84484; 85025; 85045; 85610; 85730; 86320; 86850; 86870; 86900; 86901; 86902; 86920; 86922; 87040; 87045; 87086; 87088; 87186; 87205; 87493; 89055; 93005; 93010; 96361; 96365; 99285; J0696; J1265; J1335; J1815; J1940; J3411; J3475; J3480; J3490; J7030; J7050; J7060; P9016; Q4081